=== PATIENT | male | born 1970 | race Caucasian/White ===

== ENCOUNTER 2017-10-05 17:00 | Inpatient (IN) | payer BC, OTHER ==
[~2017-10-05] VITALS: Ht 170.2 cm; Wt 70.9 kg
[2017-10-05] MEDS ORDERED: SODIUM CHLORIDE 0.9% 1000ML 1,000 ML IV STA (17:56)
[2017-10-05] MEDS ORDERED: OPTIRAY 320 IV PRN (18:00)
[2017-10-05 18:18] LABS: BASO % 0.4 %; BASO ABS # 0.07 K/uL (0-0.2); HEMATOCRIT 38.3 % (42-52); HEMOGLOBIN 13.3 g/dL (14.0-18.0); IG# 0.05 K/uL (0.00-0.02); LYMPH % 6.1 %; LYMPH ABS # 1.02 K/uL (1.2-3.4); MEAN CELL VOLUME 88.9 fL (80-100); MEAN CORPUSCULAR HEMOGLOBIN 30.9 pg (25-34); MEAN CORPUSCULAR HGB CONC 34.7 g/dl (32-36); MEAN PLATELET VOLUME 10.9 fL (7.4-10.4); MONO % 5.6 %; MONO ABS # 0.93 K/uL (0.11-0.59); NEUT % 87.6 %; NEUT ABS # 14.58 K/uL (1.4-6.5); PLATELET COUNT 305 K/uL (130-400); RED CELL DISTRIBUTION WIDTH CV 12.5 % (11.5-14.5); RED CELL DISTRIBUTION WIDTH SD 40.5 fL (36.4-46.3); WHITE BLOOD COUNT 16.65 K/uL (4.8-10.8)
[2017-10-05 18:38] LABS: ALBUMIN 3.9 gm/dl (3.4-5.0); CREATININE 1.09 mg/dl (0.60-1.40); POTASSIUM 4.2 mmol/L (3.5-5.1)
[2017-10-05 18:41] LABS: TOTAL PROTEIN 7.8 gm/dl (6.4-8.2)
--- NOTE | 2017-10-05 19:26 | DIAGNOSTIC IMAGING REPORT ---
ABDOMEN AND PELVIS CT WITH IV CONTRAST CT DOSE: 339.49 mGy.cm HISTORY: Acute left lower quadrant abdominal pain LLQ PAIN, SOFT STOOLS TECHNIQUE: Multiaxial CT images of the abdomen and pelvis were performed following the use of intravenous contrast. A dose lowering technique was utilized adhering to the principles of ALARA. COMPARISON STUDY: None. FINDINGS: Minimal dependent subsegmental bibasilar atelectasis. There is no pneumatosis or pneumoperitoneum identified. The imaged inferior cardiac chambers are unremarkable. Liver, gallbladder, spleen, pancreas and adrenal glands are within normal limits. Right kidney and ureter are within normal limits. There are several nonobstructing calculi throughout the left kidney measuring up to 5 mm within the interpolar left kidney. There is moderate left-sided hydroureteronephrosis with moderate perinephric and periureteral inflammatory stranding secondary to a 10 x 7 x 6 mm calculus of the left ureterovesicular junction. Slightly delayed nephrogram on the left secondary to obstructive uropathy. There is a large exophytic heterogeneously enhancing mass of the superior and interpolar left kidney measuring up to 4.7 x 4.9 x 6.2 cm with areas of central low attenuation suggesting central necrosis. The left renal vein appears patent. No invasion into adjacent structures identified. Urinary bladder is partially decompressed with mild wall thickening. Aorta is normal in course and caliber. No bulky adenopathy identified. No bowel obstruction or focal bowel wall thickening. Visualized appendix appears normal. Soft tissues are unremarkable. Peripherally sclerotic 1.3 cm lesion of the posterior right iliac bone is nonspecific, however likely benign. Mild degenerative changes about the bilateral hips. Grade 1 anterolisthesis L5 on S1 with remote bilateral pars defects. IMPRESSION: 1. Large heterogeneously enhancing partially exophytic mass of the superior and interpolar left kidney measures up to 6.2 cm with areas of central low attenuation suggesting central necrosis, very suspicious for renal cell carcinoma . 2. Moderate left-sided hydroureteronephrosis secondary to a 10 mm calculus of the left ureterovesicular junction. Delayed left-sided nephrogram secondary to obstructive uropathy. Mild associated urothelial enhancement of the left renal collecting system and left ureter may be reactive or reflect associated infectious etiology. 3. No evidence of pathologic adenopathy or metastatic disease. 4. Grade 1 anterolisthesis L5 on S1 with remote bilateral pars defects. Electronically signed by: Tanner Grady M.D. 10/05/2017 7:25 PM Dictated Date/Time: 10/05/2017 7:13 PM
[2017-10-05] MEDS ORDERED: CEFTRIAXONE SOD INJ 1 GM ADDVIAL IV STA (19:32)
--- NOTE | 2017-10-05 21:26 | EMERGENCY ROOM VISIT NOTE ---
History First contact with patient: 17:35 Chief Complaint: ABDOMINAL PAIN Stated Complaint: LOWER LEFT CRAMPING/LL BACK PAIN INCREASING Nursing Triage Summary: Patient complains of LLQ abdominal pain. States he has had normal bowel movements today. Vomited once because he thought it would make him feel better. History of Present Illness Patient is an otherwise healthy 47-year-old white male who presents emergency department for evaluation of left lower quadrant abdominal pain. He states the pain began earlier today, and steadily worsened throughout the day. He notes the pain is located in the left lower quadrant and radiates through to his left low back slightly. He states the pain is worse when he is seated and better when he lays flat or when he is upright and walking. He admits to nausea and anorexia. He essentially drank only water today. He did vomit once, which did not help with his pain. He notes soft bowel movements today and increased frequency of bowel movements, but no diarrhea and no melena or hematochezia. He denies any urinary symptoms. No fever or chills. He rates his pain is 7/10 presently. He denies any prior history of kidney stones, diverticulitis or diverticulosis. He did not try taking any medications for his symptoms. Review of Systems Review of systems as per HPI. All other systems reviewed were negative. 10 systems reviewed. Past Medical/Surgical History Medical Problems: (1) Nephrolithiasis (2) No Known Active Medical Problems Electronic medical records are reviewed and summarized as above/below. See Problem List. Social History Smoking Status: Never Smoker Marital Status: Housing Status: lives with family Occupation Status: employed Current/Historical Medications No Active Prescriptions or Reported Meds Physical Exam Vital Signs Date Time Temp Pulse Resp B/P (MAP) Pulse Ox O2 Delivery O2 Flow Rate FiO2 10/05/17 21:52 74 18 125/84 97 Room Air 10/05/17 19:17 83 18 113/66 98 Room Air 10/05/17 17:08 36.3 67 20 116/78 99 Room Air Physical Exam CONSTITUTIONAL: Patient is an uncomfortable appearing 47-year-old white male who is awake and alert and lying semiupright on the gurney holding his left lower abdomen with his hand. EYES: Pupils equal, round, reactive to light and accommodation. EOMs intact without nystagmus. Sclera are anicteric. ENT: Tympanic membranes intact, with normal landmarks. External canals are clear. Oral and nasopharynx are clear. Mucous membranes are moist, no lesions , tongue and gums appear normal. NECK: Supple without lymphadenopathy. No thyromegaly. No meningeal signs. Full active range of motion without discomfort. CARDIOVASCULAR: Regular rate and rhythm, with normal S1 and S2, no murmur or gallop or rub is heard. No carotid bruits auscultated. No JVD. Peripheral pulses easily palpable. RESPIRATORY: Breath sounds equal and clear to auscultation without wheezes, rales, or rhonchi heard. Full and equal chest expansion without accessory muscle use or retractions. ABDOMEN: Bowel sounds are present. Abdomen is soft, scaphoid, nondistended and nontender to percussion throughout. He has tenderness in the suprapubic and left lower quadrant, extending into the left midabdomen with deep palpation, no guarding, rebound or rigidity. No CVA tenderness. INTEGUMENTARY: No lesions or rash, normal skin turgor. LYMPH: No lymphadenopathy. Medical Decision & Procedures ER Provider Diagnostic Interpretation: ABDOMEN AND PELVIS CT WITH IV CONTRAST CT DOSE: 339.49 mGy.cm HISTORY: Acute left lower quadrant abdominal pain LLQ PAIN, SOFT STOOLS TECHNIQUE: Multiaxial CT images of the abdomen and pelvis were performed following the use of intravenous contrast. A dose lowering technique was utilized adhering to the principles of ALARA. COMPARISON STUDY: None. FINDINGS: Minimal dependent subsegmental bibasilar atelectasis. There is no pneumatosis or pneumoperitoneum identified. The imaged inferior cardiac chambers are unremarkable. Liver, gallbladder, spleen, pancreas and adrenal glands are within normal limits. Right kidney and ureter are within normal limits. There are several nonobstructing calculi throughout the left kidney measuring up to 5 mm within the interpolar left kidney. There is moderate left-sided hydroureteronephrosis with moderate perinephric and periureteral inflammatory stranding secondary to a 10 x 7 x 6 mm calculus of the left ureterovesicular junction. Slightly delayed nephrogram on the left secondary to obstructive uropathy. There is a large exophytic heterogeneously enhancing mass of the superior and interpolar left kidney measuring up to 4.7 x 4.9 x 6.2 cm with areas of central low attenuation suggesting central necrosis. The left renal vein appears patent. No invasion into adjacent structures identified. Urinary bladder is partially decompressed with mild wall thickening. Aorta is normal in course and caliber. No bulky adenopathy identified. No bowel obstruction or focal bowel wall thickening. Visualized appendix appears normal. Soft tissues are unremarkable. Peripherally sclerotic 1.3 cm lesion of the posterior right iliac bone is nonspecific, however likely benign. Mild degenerative changes about the bilateral hips. Grade 1 anterolisthesis L5 on S1 with remote bilateral pars defects. IMPRESSION: 1. Large heterogeneously enhancing partially exophytic mass of the superior and interpolar left kidney measures up to 6.2 cm with areas of central low attenuation suggesting central necrosis, very suspicious for renal cell carcinoma . 2. Moderate left-sided hydroureteronephrosis secondary to a 10 mm calculus of the left ureterovesicular junction. Delayed left-sided nephrogram secondary to obstructive uropathy. Mild associated urothelial enhancement of the left renal collecting system and left ureter may be reactive or reflect associated infectious etiology. 3. No evidence of pathologic adenopathy or metastatic disease. 4. Grade 1 anterolisthesis L5 on S1 with remote bilateral pars defects. Laboratory Results 10/05/17 18:00 Red Blood Count 4.31, Mean Corpuscular Volume 88.9, Mean Corpuscular Hemoglobin 30.9, Mean Corpuscular Hemoglobin Concent 34.7, Mean Platelet Volume 10.9, Neutrophils (%) (Auto) 87.6, Lymphocytes (%) (Auto) 6.1, Monocytes (%) (Auto) 5.6, Eosinophils (%) (Auto) 0.0, Basophils (%) (Auto) 0.4, Neutrophils # (Auto) 14.58, Lymphocytes # (Auto) 1.02, Monocytes # (Auto) 0.93, Eosinophils # (Auto) 0.00, Basophils # (Auto) 0.07 10/05/17 18:00 Test 10/05/17 18:00 10/05/17 18:50 White Blood Count 16.65 K/uL (4.8-10.8) Red Blood Count 4.31 M/uL (4.7-6.1) Hemoglobin 13.3 g/dL (14.0-18.0) Hematocrit 38.3 % (42-52) Mean Corpuscular Volume 88.9 fL (80-100) Mean Corpuscular Hemoglobin 30.9 pg (25-34) Mean Corpuscular Hemoglobin Concent 34.7 g/dl (32-36) Platelet Count 305 K/uL (130-400) Mean Platelet Volume 10.9 fL (7.4-10.4) Neutrophils (%) (Auto) 87.6 % Lymphocytes (%) (Auto) 6.1 % Monocytes (%) (Auto) 5.6 % Eosinophils (%) (Auto) 0.0 % Basophils (%) (Auto) 0.4 % Neutrophils # (Auto) 14.58 K/uL (1.4-6.5) Lymphocytes # (Auto) 1.02 K/uL (1.2-3.4) Monocytes # (Auto) 0.93 K/uL (0.11-0.59) Eosinophils # (Auto) 0.00 K/uL (0-0.5) Basophils # (Auto) 0.07 K/uL (0-0.2) RDW Standard Deviation 40.5 fL (36.4-46.3) RDW Coefficient of Variation 12.5 % (11.5-14.5) Immature Granulocyte % (Auto) 0.3 % Immature Granulocyte # (Auto) 0.05 K/uL (0.00-0.02) Anion Gap 7.0 mmol/L (3-11) Est Creatinine Clear Calc Drug Dose 79.2 ml/min Estimated GFR () 93.8 Estimated GFR (Non- 81.0 BUN/Creatinine Ratio 13.5 (10-20) Calcium Level 9.0 mg/dl (8.5-10.1) Total Bilirubin 0.7 mg/dl (0.2-1) Aspartate Amino Transf (AST/SGOT) 27 U/L (15-37) Alanine Aminotransferase (ALT/SGPT) 25 U/L (12-78) Alkaline Phosphatase 75 U/L (45-117) Total Protein 7.8 gm/dl (6.4-8.2) Albumin 3.9 gm/dl (3.4-5.0) Globulin 3.9 gm/dl (2.5-4.0) Albumin/Globulin Ratio 1.0 (0.9-2) Urine Color YELLOW Urine Appearance CLEAR (CLEAR) Urine pH 7.5 (4.5-7.5) Urine Specific [place] 1.018 (1.000-1.030) Urine Protein NEG (NEG) Urine Glucose (UA) NEG (NEG) Urine Ketones 1+ (NEG) Urine Occult Blood TRACE (NEG) Urine Nitrite NEG (NEG) Urine Bilirubin NEG (NEG) Urine Urobilinogen NEG (NEG) Urine Leukocyte Esterase TRACE (NEG) Urine WBC (Auto) 1-5 /hpf (0-5) Urine RBC (Auto) 10-30 /hpf (0-4) Urine Hyaline Casts (Auto) 10-30 /lpf (0-5) Urine Epithelial Cells (Auto) 20-30 /lpf (0-5) Urine Bacteria (Auto) NEG (NEG) Medications Administered Medications (Trade) Dose Ordered Sig/Kostas Route Start Time Stop Time Status Last Admin Dose Admin Sodium Chloride 1,000 ml @ 999 mls/hr Q1H1M STAT IV 10/05/17 17:56 10/05/17 18:56 DC 10/05/17 17:56 999 MLS/HR Ceftriaxone Sodium (Rocephin Inj) 1 gm NOW STAT IV 10/05/17 19:32 10/05/17 19:34 DC 10/05/17 19:32 1 GM ED Course The patient was seen and evaluated as above. His old records were reviewed. IV lock was initiated and laboratory studies were collected. He was made NPO, and hydrated with normal saline solution. He was offered but declined any medication for pain or nausea. CBC with differential, CMP and urinalysis were collected. Given his left lower quadrant abdominal pain, CT scan of the abdomen and pelvis with IV contrast was ordered. Laboratory studies noted a white count of 16,600, with left shift and bandemia. H&H is 13.3 and 38.3. Platelet count 305,000. Chemistries did not note any electrolyte abnormalities. BUN and creatinine 15 and 1.09. LFTs are unremarkable. Urinalysis noted 1+ ketones, trace occult blood, trace leuk esterase and 10-30 WBCs and RBCs. The patient's CT scan noted a 10 mm calculus at the left UVJ with moderate left- sided hydroureteronephrosis, delayed left-sided nephrogram secondary to obstructive uropathy and mild associated urothelial enhancement of the left renal collecting system and ureter, reactive or infectious in nature. There was also a large heterogeneously enhancing left renal mass measuring up to 6 cm that is suspicious for renal cell carcinoma. At this point, urine culture and blood cultures 2 were obtained and the patient was given 1 g of ceftriaxone IV empirically. Patient history, presentation and ED workup were reviewed with attending physician, and discussed with Dr. Mancini of urology. He recommended admission for IV antibiotics, and likely surgical intervention for stone removal tomorrow. He stated that the patient did not need any type of urgent surgical intervention unless he began to demonstrate signs of sepsis including but not limited to fever or tachycardia. All laboratory and diagnostic imaging studies were reviewed with the patient and his at length and her questions were answered. He was ordered a dinner trying in anticipation of his n.p.o. status after midnight. [facility] and [facility] Differential diagnoses entertained included UTI, pyelonephritis, renal colic, diverticulitis, bowel obstruction, perforation, abscess, mass or malignancy, infectious versus inflammatory colitis, shingles, among others. Medical Decision See emergency department course. Medication Reconcilliation Current Medication List: was personally reviewed by ak Blood Pressure Screening Patient's blood pressure: Normal blood pressure Blood pressure disposition: Did not require urgent referral Impression Primary Impression: Left ureteral stone Additional Impressions: UTI (urinary tract infection) Left renal mass Departure Information Dispostion Being Evaluated By Hospitalist Prescriptions No Active Prescriptions or Reported Meds Referrals Jakub Martin M.D. (PCP) Patient Instructions My [facility] Problem Qualifiers
[2017-10-05] MEDS ORDERED: ACETAMINOPHEN 325 MG TAB PO PRN (22:00)
[2017-10-05] MEDS ORDERED: ONDANSETRON INJ 2 MG/ML 2 ML VIAL IV PRN (22:00)
[2017-10-05] MEDS ORDERED: MAGNESIUM HYDROXIDE SUSP 30 ML UDC PO PRN (22:00)
--- NOTE | 2017-10-05 22:17 | History and Physical ---
History & Physical Date & Time of Service: Oct 05, 2017 at 22:13 Chief Complaint: Lower Left Cramping/Ll Back Pain Increasing Primary Care Physician: Jakub Martin M.D. History of Present Illness Source: patient 47-year-old male with no significant past medical history presented to the ER with complaints of left lower quadrant abdominal pain that started earlier today. The pain is in the left lower quadrant and radiating to his left lower back and is worse on sitting. He stated that he had some nausea and had induced vomiting 1. He also noted increased frequency of bowel movements but denies any bright red bleeding per rectum or melena or diarrhea. Denies any urinary complaints such as frequency, dysuria, hematuria. Denies any history of kidney stones. Denies any fevers or chills. Currently he reports no pain. Past Medical/Surgical History No significant past medical history Family History Breast cancer in mother Social History Smoking Status: Never Smoker Marital Status: Occupational Status: employed Allergies Coded Allergies: Amoxicillin (Verified Allergy, Mild, Hives, 10/05/17) Safflower (Unverified Allergy, Unknown, RASH, 10/05/17) Uncoded Allergies: CHOCOLATE (Allergy, Unknown, 09/08/02) Home Medications No Active Prescriptions or Reported Meds Review of Systems Constitutional: No fever, No chills Eyes: No worsening of vision ENT: No hearing loss Respiratory: No cough, No sputum, No wheezing, No shortness of breath Cardiovascular: No chest pain Abdomen: + pain, + nausea (LLQ), No diarrhea, No constipation Musculoskeletal: No joint pain Genitourinary - Male: No hematuria, No dysuria, No urinary frequency, No urinary urgency Neurologic: No memory loss Psychiatric: No depression symptoms Endocrine: No fatigue Hematologic / Lymphatic: No abnormal bleeding/bruising Physical Exam Vital Signs Date Time Temp Pulse Resp B/P (MAP) Pulse Ox O2 Delivery O2 Flow Rate FiO2 10/05/17 21:52 74 18 125/84 97 Room Air 10/05/17 19:17 83 18 113/66 98 Room Air 10/05/17 17:08 36.3 67 20 116/78 99 Room Air General Appearance: WD/WN, no apparent distress Head: normocephalic Eyes: normal inspection ENT: hearing grossly normal Neck: supple Respiratory/Chest: chest non-tender, lungs clear, normal breath sounds, no respiratory distress, no accessory muscle use Cardiovascular: regular rate, rhythm Abdomen/GI: normal bowel sounds, non tender, soft Extremities/Musculoskelatal: no pedal edema Neurologic/Psych: alert, normal mood/affect, oriented x 3 Diagnostics Laboratory Results Results Past 24 Hours Test 10/05/17 18:00 10/05/17 18:50 Range/Units White Blood Count 16.65 4.8-10.8 K/uL Red Blood Count 4.31 4.7-6.1 M/uL Hemoglobin 13.3 14.0-18.0 g/dL Hematocrit 38.3 42-52 % Mean Corpuscular Volume 88.9 80-100 fL Mean Corpuscular Hemoglobin 30.9 25-34 pg Mean Corpuscular Hemoglobin Concent 34.7 32-36 g/dl Platelet Count 305 130-400 K/uL Mean Platelet Volume 10.9 7.4-10.4 fL Neutrophils (%) (Auto) 87.6 % Lymphocytes (%) (Auto) 6.1 % Monocytes (%) (Auto) 5.6 % Eosinophils (%) (Auto) 0.0 % Basophils (%) (Auto) 0.4 % Neutrophils # (Auto) 14.58 1.4-6.5 K/uL Lymphocytes # (Auto) 1.02 1.2-3.4 K/uL Monocytes # (Auto) 0.93 0.11-0.59 K/uL Eosinophils # (Auto) 0.00 0-0.5 K/uL Basophils # (Auto) 0.07 0-0.2 K/uL RDW Standard Deviation 40.5 36.4-46.3 fL RDW Coefficient of Variation 12.5 11.5-14.5 % Immature Granulocyte % (Auto) 0.3 % Immature Granulocyte # (Auto) 0.05 0.00-0.02 K/uL Sodium Level 137 136-145 mmol/L Potassium Level 4.2 3.5-5.1 mmol/L Chloride Level 105 98-107 mmol/L Carbon Dioxide Level 25 21-32 mmol/L Anion Gap 7.0 3-11 mmol/L Blood Urea Nitrogen 15 7-18 mg/dl Creatinine 1.09 0.60-1.40 mg/dl Est Creatinine Clear Calc Drug Dose 79.2 ml/min Estimated GFR () 93.8 Estimated GFR (Non- 81.0 BUN/Creatinine Ratio 13.5 10-20 Random Glucose 130 70-99 mg/dl Calcium Level 9.0 8.5-10.1 mg/dl Total Bilirubin 0.7 0.2-1 mg/dl Aspartate Amino Transf (AST/SGOT) 27 15-37 U/L Alanine Aminotransferase (ALT/SGPT) 25 12-78 U/L Alkaline Phosphatase 75 45-117 U/L Total Protein 7.8 6.4-8.2 gm/dl Albumin 3.9 3.4-5.0 gm/dl Globulin 3.9 2.5-4.0 gm/dl Albumin/Globulin Ratio 1.0 0.9-2 Urine Color YELLOW Urine Appearance CLEAR CLEAR Urine pH 7.5 4.5-7.5 Urine Specific [place] 1.018 1.000-1.030 Urine Protein NEG NEG Urine Glucose (UA) NEG NEG Urine Ketones 1+ NEG Urine Occult Blood TRACE NEG Urine Nitrite NEG NEG Urine Bilirubin NEG NEG Urine Urobilinogen NEG NEG Urine Leukocyte Esterase TRACE NEG Urine WBC (Auto) 1-5 0-5 /hpf Urine RBC (Auto) 10-30 0-4 /hpf Urine Hyaline Casts (Auto) 10-30 0-5 /lpf Urine Epithelial Cells (Auto) 20-30 0-5 /lpf Urine Bacteria (Auto) NEG NEG Microbiology Results 10/05/17 Blood Culture, Received Pending 10/05/17 Blood Culture, Received Pending 10/05/17 Urine Culture, Received Pending Diagnostic Radiology [~ rep ct add3]] ABDOMEN AND PELVIS CT WITH IV CONTRAST CT DOSE: 339.49 mGy.cm HISTORY: Acute left lower quadrant abdominal pain LLQ PAIN, SOFT STOOLS TECHNIQUE: Multiaxial CT images of the abdomen and pelvis were performed following the use of intravenous contrast. A dose lowering technique was utilized adhering to the principles of ALARA. COMPARISON STUDY: None. FINDINGS: Minimal dependent subsegmental bibasilar atelectasis. There is no pneumatosis or pneumoperitoneum identified. The imaged inferior cardiac chambers are unremarkable. Liver, gallbladder, spleen, pancreas and adrenal glands are within normal limits. Right kidney and ureter are within normal limits. There are several nonobstructing calculi throughout the left kidney measuring up to 5 mm within the interpolar left kidney. There is moderate left-sided hydroureteronephrosis with moderate perinephric and periureteral inflammatory stranding secondary to a 10 x 7 x 6 mm calculus of the left ureterovesicular junction. Slightly delayed nephrogram on the left secondary to obstructive uropathy. There is a large exophytic heterogeneously enhancing mass of the superior and interpolar left kidney measuring up to 4.7 x 4.9 x 6.2 cm with areas of central low attenuation suggesting central necrosis. The left renal vein appears patent. No invasion into adjacent structures identified. Urinary bladder is partially decompressed with mild wall thickening. Aorta is normal in course and caliber. No bulky adenopathy identified. No bowel obstruction or focal bowel wall thickening. Visualized appendix appears normal. Soft tissues are unremarkable. Peripherally sclerotic 1.3 cm lesion of the posterior right iliac bone is nonspecific, however likely benign. Mild degenerative changes about the bilateral hips. Grade 1 anterolisthesis L5 on S1 with remote bilateral pars defects. IMPRESSION: 1. Large heterogeneously enhancing partially exophytic mass of the superior and interpolar left kidney measures up to 6.2 cm with areas of central low attenuation suggesting central necrosis, very suspicious for renal cell carcinoma . 2. Moderate left-sided hydroureteronephrosis secondary to a 10 mm calculus of the left ureterovesicular junction. Delayed left-sided nephrogram secondary to obstructive uropathy. Mild associated urothelial enhancement of the left renal collecting system and left ureter may be reactive or reflect associated infectious etiology. 3. No evidence of pathologic adenopathy or metastatic disease. 4. Grade 1 anterolisthesis L5 on S1 with remote bilateral pars defects. Electronically signed by: Tanner Grady M.D. 10/05/2017 7:25 PM Dictated Date/Time: 10/05/2017 7:13 PM Impression Assessment and Plan 47-year-old male with no significant past medical history presented to the ER with complaints of left lower quadrant abdominal pain that started earlier today. The pain is in the left lower quadrant and radiating to his left lower back and is worse on sitting. Associated with nausea and one episode of vomiting. Left kidney nephrolithiasis: -Abdominal CT pelvis revealed Moderate left-sided hydroureteronephrosis secondary to a 10 mm calculus of the left ureterovesicular junction. Mild associated urothelial enhancement of the left renal collecting system and left ureter may be reactive or reflect associated infectious etiology. -Currently pain-free and declines pain medication -Flomax 0.4 mg daily -Urology consult -UA with trace leukoesterase and trace blood, urine culture pending -IV Rocephin daily for possible urinary tract infection -N.p.o. after midnight in anticipation of procedure tomorrow Left renal mass suspicious of renal cell carcinoma: -Abdominal CT revealed Large heterogeneously enhancing partially exophytic mass of the superior and interpolar left kidney measures up to 6.2 cm with areas of central low attenuation suggesting central necrosis, very suspicious for renal cell carcinoma . -Oncology consult DVT prophylaxis: SCDs No chemical anticoagulation in anticipation of procedure tomorrow Full code Admitted to [facility] Resident Physician Supervision Note: I was present with Dr. Hall during the history and exam. I discussed the case with the resident and agree with the findings and plan as documented in the note. Any exceptions or clarifications are listed here: 47 y/o M - denies significant medical history. Presents with LLQ abdominal pain. A CT abdomen pelvis reveals a 10mm calculus at the L ureterovesical junction. There is also a 6cm exophytic renal mass which is suspicious for renal CA - no evidence of met disease on current imaging OE AAO x 3 S1,2 R CTAB NT, ND No CCE P: IVF, analgesia provided - urology to evaluate AM Reg the renal mass - we willl defer to urology initially as he will likely need a biopsy - he should f/u with oncology on DC Documented By: Mario Alberto Adames Resuscitation Status Full code VTE Prophylaxis Will order VTE Prophylaxis: Yes Resident Tracking Resident Involvement: Resident Care Provided Care Provided: Adult Hospital Medicine
[2017-10-05 22:26] VITALS: BP 125/84; PULSE 74; TEMP 36.3; BMI 24.5
[2017-10-05] MEDS ORDERED: TAMSULOSIN HCL 0.4 MG CAP PO STA (22:52)
[2017-10-05 23:05] VITALS: BP 122/79; PULSE 72; TEMP 36.9; O2SAT 100
[2017-10-05 23:40] VITALS: O2SAT 100; Ht 170.2 cm; Wt 70.9 kg
[2017-10-05] MEDS: SODIUM CHLORIDE 0.9% 1000ML 1,000 ML IV SCH (23:53)
[2017-10-06] MEDS: SODIUM CHLORIDE 0.9% 1000ML 1,000 ML IV SCH ×2 (05:48→12:25)
[2017-10-06 07:07] VITALS: BP 105/70; PULSE 62; TEMP 37; O2SAT 97
[2017-10-06 07:12] LABS: ALBUMIN 3.1 gm/dl (3.4-5.0); CALCIUM 8.1 mg/dl (8.5-10.1); CREATININE 0.8 mg/dl (0.60-1.40); POTASSIUM 3.7 mmol/L (3.5-5.1)
[2017-10-06 07:20] LABS: TOTAL PROTEIN 6.1 gm/dl (6.4-8.2)
--- NOTE | 2017-10-06 08:15 | Family Medicine Progress Note ---
Progress Note Date of Service Oct 06, 2017. Subjective Pt evaluation today including: conversation w/ patient, physical exam, chart review, lab review, review of studies, conversation w/ regulatory consultant, review of inpatient medication list Patient appears well this morning. He states he is no longer having the severe "intestinal pain" he was having earlier and now is only experiencing a mild throbbing in LLQ, with no radiation into the back. He denies current nausea or ongoing vomiting. He states he is voiding without issue, and has not noted any blood in his urine. He denies changes in bowel habits. He otherwise denies fevers/chills, headaches, CP, palpitations, dyspnea, lower extremity swelling or rashes. ROS is unremarkable except as noted above. Objective Vital Signs Date Time Temp Pulse Resp B/P (MAP) Pulse Ox O2 Delivery O2 Flow Rate FiO2 10/05/17 23:40 Room Air 10/05/17 23:40 100 Room Air 10/05/17 23:05 36.9 72 16 122/79 (93) 100 Room Air 10/05/17 22:26 36.3 74 18 125/84 10/05/17 21:52 74 18 125/84 97 Room Air 10/05/17 19:17 83 18 113/66 98 Room Air 10/05/17 17:08 36.3 67 20 116/78 99 Room Air Physical Exam General Appearance: WD/WN, no apparent distress Eyes: normal inspection ENT: hearing grossly normal Neck: supple Respiratory/Chest: lungs clear, normal breath sounds, no respiratory distress, no accessory muscle use Cardiovascular: regular rate, rhythm, no murmur Abdomen: normal bowel sounds, non tender ( to palpation), soft, + pertinent finding (No CVA tenderness) Extremities: no pedal edema, no calf tenderness Neurologic/Psychiatric: alert, normal mood/affect, oriented x 3 Skin: normal color, warm/dry, no rash Laboratory Results Results Past 24 Hours Test 10/05/17 18:00 10/05/17 18:50 10/06/17 06:23 10/06/17 06:26 Range/Units White Blood Count 16.65 11.05 4.8-10.8 K/uL Red Blood Count 4.31 4.02 4.7-6.1 M/uL Hemoglobin 13.3 11.7 14.0-18.0 g/dL Hematocrit 38.3 36.2 42-52 % Mean Corpuscular Volume 88.9 90.0 80-100 fL Mean Corpuscular Hemoglobin 30.9 29.1 25-34 pg Mean Corpuscular Hemoglobin Concent 34.7 32.3 32-36 g/dl Platelet Count 305 274 130-400 K/uL Mean Platelet Volume 10.9 11.1 7.4-10.4 fL Neutrophils (%) (Auto) 87.6 61.0 % Lymphocytes (%) (Auto) 6.1 29.1 % Monocytes (%) (Auto) 5.6 8.3 % Eosinophils (%) (Auto) 0.0 0.9 % Basophils (%) (Auto) 0.4 0.5 % Neutrophils # (Auto) 14.58 6.73 1.4-6.5 K/uL Lymphocytes # (Auto) 1.02 3.22 1.2-3.4 K/uL Monocytes # (Auto) 0.93 0.92 0.11-0.59 K/uL Eosinophils # (Auto) 0.00 0.10 0-0.5 K/uL Basophils # (Auto) 0.07 0.06 0-0.2 K/uL RDW Standard Deviation 40.5 41.9 36.4-46.3 fL RDW Coefficient of Variation 12.5 12.7 11.5-14.5 % Immature Granulocyte % (Auto) 0.3 0.2 % Immature Granulocyte # (Auto) 0.05 0.02 0.00-0.02 K/uL Sodium Level 137 144 136-145 mmol/L Potassium Level 4.2 3.7 3.5-5.1 mmol/L Chloride Level 105 110 98-107 mmol/L Carbon Dioxide Level 25 27 21-32 mmol/L Anion Gap 7.0 6.0 3-11 mmol/L Blood Urea Nitrogen 15 15 7-18 mg/dl Creatinine 1.09 0.80 0.60-1.40 mg/dl Est Creatinine Clear Calc Drug Dose 79.2 107.9 ml/min Estimated GFR () 93.8 124.2 Estimated GFR (Non- 81.0 107.1 BUN/Creatinine Ratio 13.5 18.8 10-20 Random Glucose 130 84 70-99 mg/dl Calcium Level 9.0 8.1 8.5-10.1 mg/dl Total Bilirubin 0.7 0.7 0.2-1 mg/dl Aspartate Amino Transf (AST/SGOT) 27 20 15-37 U/L Alanine Aminotransferase (ALT/SGPT) 25 19 12-78 U/L Alkaline Phosphatase 75 60 45-117 U/L Total Protein 7.8 6.1 6.4-8.2 gm/dl Albumin 3.9 3.1 3.4-5.0 gm/dl Globulin 3.9 3.0 2.5-4.0 gm/dl Albumin/Globulin Ratio 1.0 1.0 0.9-2 Urine Color YELLOW Urine Appearance CLEAR CLEAR Urine pH 7.5 4.5-7.5 Urine Specific [place] 1.018 1.000-1.030 Urine Protein NEG NEG Urine Glucose (UA) NEG NEG Urine Ketones 1+ NEG Urine Occult Blood TRACE NEG Urine Nitrite NEG NEG Urine Bilirubin NEG NEG Urine Urobilinogen NEG NEG Urine Leukocyte Esterase TRACE NEG Urine WBC (Auto) 1-5 0-5 /hpf Urine RBC (Auto) 10-30 0-4 /hpf Urine Hyaline Casts (Auto) 10-30 0-5 /lpf Urine Epithelial Cells (Auto) 20-30 0-5 /lpf Urine Bacteria (Auto) NEG NEG Microbiology Results 10/05/17 Blood Culture, Received Pending 10/05/17 Blood Culture, Received Pending 10/05/17 Urine Culture, Received Pending Assessment and Plan 47 year old male with no significant past medical history presented to the ED with complaints of acute onset left lower quadrant abdominal pain with radiation to his left lower back, with nausea and vomiting. Admitted for 10mm calculus of the left ureterovesicular junction with hydroureteronephrosis as well as left renal exophytic mass. Left ureteric stone with possible associated infection Abdominal CT pelvis reports moderate left-sided hydroureteronephrosis secondary to a 10mm calculus of the left ureterovesicular junction. Mild associated urothelial enhancement of the left renal collecting system and left ureter may be reactive or reflect associated infectious etiology. - Urology consulted, patient NPO with IVF for possible procedure today. - UA shows trace leuks and blood, urine culture pending. Empiric treatment of UTI with IV Rocephin daily - day 2 - Initiated tamsulosin daily - Currently minimal pain/nausea - patient declines analgesics/anti-emetics Left renal mass, suspicious of renal cell carcinoma: - Abdominal CT reports large heterogeneously enhancing partially exophytic mass of the superior and interpolar left kidney measures up to 6.2cm with areas of central low attenuation suggesting central necrosis, very suspicious for renal cell carcinoma. No evidence of pathologic adenopathy or metastatic disease. - Oncologist, Dr. Soria states no role for oncology yet with mass of this side, patient will need nephrectomy. Patient with outpatient oncology follow up. - Urology consulted DVT prophylaxis: - SCDs - No chemical anticoagulation in anticipation of procedure FULL CODE Resident Tracking Resident Involvement: Resident Care Provided Care Provided: Adult [facility] Medicine Reviewed: Pt Seen/Exam by Me History pain almost resolved. Constitutional: denies: fever Respiratory: negative: short of breath Cardiovascular: denies chest pain Gastrointestinal/Abdominal: negative: abdominal pain General Appearance: no apparent distress Respiratory: lungs clear, no respiratory distress Cardiovascular: regular rate, rhythm Gastrointestinal: normal bowel sounds, non tender, soft Neurologic/Psychiatric: alert, oriented x 3 Skin Characteristics: warm/dry Assessment/Plan Resident Physician Supervision Note: I independently interviewed and examined the patient and verified the ramirez history and physical, reviewed labs and image studies, discussed the case with the resident Dr. Mayfield and agree with the findings and care plan.
[2017-10-06 09:01] LABS: BASO % 0.5 %; BASO ABS # 0.06 K/uL (0-0.2); EOS % 0.9 %; HEMATOCRIT 36.2 % (42-52); HEMOGLOBIN 11.7 g/dL (14.0-18.0); IG# 0.02 K/uL (0.00-0.02); LYMPH % 29.1 %; LYMPH ABS # 3.22 K/uL (1.2-3.4); MEAN CORPUSCULAR HEMOGLOBIN 29.1 pg (25-34); MEAN CORPUSCULAR HGB CONC 32.3 g/dl (32-36); MEAN PLATELET VOLUME 11.1 fL (7.4-10.4); MONO % 8.3 %; MONO ABS # 0.92 K/uL (0.11-0.59); NEUT ABS # 6.73 K/uL (1.4-6.5); PLATELET COUNT 274 K/uL (130-400); RED CELL DISTRIBUTION WIDTH CV 12.7 % (11.5-14.5); RED CELL DISTRIBUTION WIDTH SD 41.9 fL (36.4-46.3); WHITE BLOOD COUNT 11.05 K/uL (4.8-10.8)
[2017-10-06] MEDS ORDERED: CIPROFLOXACIN 400MG / 200ML D5W IV ONE (12:45)
[2017-10-06] MEDS ORDERED: CIPROFLOXACIN / D5W 400 MG IV SCH (13:30)
--- NOTE | 2017-10-06 14:17 | Urology Consultation ---
History General Date of Service: Oct 06, 2017. Primary Care Physician: Jakub Martin M.D. Pt seen a urologist before?: No History of Present Illness Very healthy 47-year-old male who presented to the emergency room yesterday after 24 hours of left lower quadrant pain He presumed this was related to GI issues, but upon arrival had a CT which revealed a left distal ureteral calculus (1.0 centimeter) On the same CT, he was noted to have a left, solid, enhancing renal mass approximately 6 cm -location abuts the hilum He denies any past history of kidney stones Number hematuria No flank pain or symptoms consistent with renal mass prior to the onset of the pain yesterday Family history is significant for breast cancer but no history of renal cell carcinoma, no history of kidney stones He is feeling notably better today, but has not passed the stone Laboratory Labs were reviewed and are within normal limits unless listed below. Labs are available in the chart and at [facility] Problem List Medical Problems: (1) Left renal mass Status: Acute (2) Left ureteral stone Status: Acute (3) UTI (urinary tract infection) Status: Acute Past History no pertinent history Past Surgical History: no surgical history Family History no stone hx Social History Hx Tobacco Use In Past Year?: No Smoking: non-smoker Marital status: Occupation status: employed History of MDRO No Allergies Coded Allergies: Amoxicillin (Verified Allergy, Mild, Hives, 10/05/17) Safflower (Unverified Allergy, Unknown, RASH, 10/05/17) Uncoded Allergies: CHOCOLATE (Allergy, Unknown, 09/08/02) Medications Home Medications: Home Meds and Scripts Medications Dose Route/Sig Max Daily Dose Days Date Category No Active Prescriptions or Reported Medications Rx Inpatient Medications: Current Inpatient Medications Medications (Trade) Dose Ordered Sig/Kostas Route Start Time Stop Time Status Last Admin Dose Admin Ioversol (Optiray 320) 100 ml UD PRN IV 10/05/17 18:00 10/09/17 17:59 Acetaminophen (Tylenol Tab) 650 mg Q4H PRN PO 10/05/17 22:00 11/04/17 21:59 Magnesium Hydroxide (Milk Of Magnesia Susp) 30 ml Q6H PRN PO 10/05/17 22:00 11/04/17 21:59 Ondansetron HCl (Zofran Inj) 4 mg Q6H PRN IV 10/05/17 22:00 11/04/17 21:59 Sodium Chloride 1,000 ml @ 150 mls/hr Q6H40M IV 10/05/17 22:15 11/04/17 22:14 10/06/17 12:25 150 MLS/HR Tamsulosin HCl (Flomax Cap) 0.4 mg HS PO 10/06/17 21:00 11/05/17 20:59 Ceftriaxone Sodium 1 gm/ Dextrose 50 ml @ 100 mls/hr Q24H IV 10/06/17 19:00 10/14/17 19:29 Ciprofloxacin/ Dextrose 200 ml @ 100 mls/hr PREOP IV 10/06/17 13:30 10/06/17 18:00 Review of Systems Review of Systems Constitutional: No see HPI, No fever, No chills, No frequent headaches, No weight loss, No problem reported Eyes: No see HPI, No blurred vision, No double vision, No eye pain, No loss of night vision, No problem reported Neurological: No see HPI, No dizzy, No passing out, No numbness/tingling, No seizures, No problem reported Endocrine: No see HPI, No excessive thirst, No too hot, No too cold, No tired/ sluggish, No problem reported Gastrointestinal: + abdominal pain Cardiovascular: No see HPI, No heart murmur, No chest pain, No angina, No irregular heartbeat, No palpitations, No swelling ankles/feet, No problem reported Respiratory: No see HPI, No shortness of breath, No wheezing, No coughing up blood, No chronic cough, No problem reported Skin: No see HPI, No rash, No boils, No dry skin, No problem reported Musculoskeletal: No see HPI, No joint pain, No neck pain, No back pain, No arthritis, No problem reported Ears / Nose / Throat: No see HPI, No hearing loss, No sinus, No hoarse voice, No sore throat, No problem reported Psychologic / Mental: No see HPI, No nervous, No trouble remembering, No difficulty sleeping, No problem reported Male : + kidney stones All Other Systems: Reviewed and Negative Physical Exam Vital Signs: Vital Signs Past 12 Hours Date Time Temp Pulse Resp B/P (MAP) Pulse Ox O2 Delivery O2 Flow Rate FiO2 10/06/17 07:55 Room Air 10/06/17 07:07 37.0 62 16 105/70 (82) 97 Room Air Physical Exam: General Appearance: no apparent distress Eyes: bilateral eyes normal inspection ENT: hearing grossly normal Neck: supple, no adenopathy, thyroid normal, no JVD Respiratory/Chest: no respiratory distress, no accessory muscle use Cardiovascular: no edema, no gallop Gastrointestinal: Abdomen: normal abdomen Bladder: normal bladder Renal: normal renal Extremities: normal range of motion, non-tender Neurologic/Psychiatric: alert, normal mood/affect, oriented x 3 Skin: normal color, warm/dry Lymphatic: no adenopathy Assessment & Plan Assessment & Plan Left renal mass; left kidney stone, left ureteral stone #1 left renal mass Lengthy discussion today about my suspicion that this is a renal cell carcinoma I have stressed that he does not need to have this treated acutely, but we will plan for treatment and discuss the details further at his follow-up #2 left ureteral stone He is relatively asymptomatic today, but this was likely source of the pain Given the size of the stone and the location is other pathology, I suggested we treat the stone today Plan for cystoscopy, left ureteroscopy, left laser lithotripsy plus or minus stent placement Assuming he tolerates this well, he likely can be discharged home later today
--- NOTE | 2017-10-06 14:31 | DIAGNOSTIC IMAGING REPORT ---
CHEST 2 VIEWS ROUTINE CLINICAL HISTORY: pre-op preoperative evaluation. Nephrocalcinosis. COMPARISON STUDY: No previous studies for comparison. FINDINGS: The bones soft tissues and hemidiaphragms are normal. The cardiomediastinal silhouette is normal. The lungs are clear. The pulmonary vasculature is normal. IMPRESSION: Negative chest. The above report was generated using voice recognition software. It may contain grammatical, syntax or spelling errors. Electronically signed by: Uziel Moser M.D. 10/06/2017 2:29 PM Dictated Date/Time: 10/06/2017 2:29 PM
--- NOTE | 2017-10-06 15:04 | DIAGNOSTIC IMAGING REPORT ---
KUB HISTORY: Preoperative exam in a patient with left-sided nephrolithiasis l ureteral stone COMPARISON: CT abdomen and pelvis 10/05/2017 FINDINGS: The bowel gas pattern is non-obstructive. There is no organomegaly. 10 mm calculus of the left ureterovesicular junction appears unchanged from comparison study. Multiple left-sided nephrolithiasis redemonstrated. The right renal shadow is partially secured by bowel gas. No pneumoperitoneum or pneumatosis. No fracture. IMPRESSION: 1. Unchanged positioning of the 10 mm left ureterovesicular junction calculus. 2. Multiple left-sided renal calculi appear unchanged. Electronically signed by: Tanner Grady M.D. 10/06/2017 3:03 PM Dictated Date/Time: 10/06/2017 2:56 PM
[2017-10-06] MEDS ORDERED: ONDANSETRON INJ 2 MG/ML 2 ML VIAL IV PRN (15:30)
[2017-10-06] MEDS ORDERED: FENTANYL CITRATE INJ 50 MCG/1 ML 2 ML VIAL IV PRN (15:30)
[2017-10-06] MEDS ORDERED: EpHEDrine SULFATE INJ 50 MG/ML AMP IV PRN (15:30)
[2017-10-06] MEDS ORDERED: ATROPINE SULFATE 0.1 MG/ML 5ML SYR IV PRN (15:30)
[2017-10-06] MEDS ORDERED: MIDAZOLAM HCL 1 MG/ML 2ML VIAL ONE (15:41)
[2017-10-06] MEDS ORDERED: LIDOCAINE HCL 2% 2 ML VIAL (20MG/ML) ONE (15:41)
[2017-10-06] MEDS ORDERED: FENTANYL CITRATE INJ 50 MCG/1 ML 2 ML VIAL ONE ×2 (15:41→16:54)
[2017-10-06] MEDS ORDERED: PROPOFOL IV EMULSION 10 MG/ML 20 ML VIAL IV ONE (15:41)
[2017-10-06] MEDS ORDERED: Cysto-Conray II 17.2% 250ML BOTTLE ONE (15:59)
[2017-10-06] MEDS ORDERED: DEXAMETHASONE SOD INJ 4 MG/ML VIAL ONE (16:24)
[2017-10-06] MEDS ORDERED: ONDANSETRON INJ 2 MG/ML 2 ML VIAL ONE (16:24)
--- NOTE | 2017-10-06 17:02 | [facility] Post Operative Brief Note ---
Immediate Operative Summary Operative Date Oct 06, 2017. Pre-Operative Diagnosis left ureteral stone Post-Operative Diagnosis left ureteral stone Procedure(s) Performed Cystoscopy, Left Ureteroscopy, Stone Extraction, Laser Lithotripsy, Stent Insertion ([id number]) Surgeon Dr. Cordoba Team Facilitator Surgeon(s) none Estimated Blood Loss 5CC Findings Consistent with Post-Op Diagnosis Specimens A. Left ureteral stones - for chemical analysis Drains None Anesthesia Type General Complication(s) none Disposition Accompanied Pt To Recover: yes Disposition: Recovery Room / PACU (stable)
--- NOTE | 2017-10-06 17:07 | [facility] Operative Report ---
Operative Report Operative Date Oct 06, 2017. Pre-Operative Diagnosis left ureteral stone Post-Operative Diagnosis left ureteral stone Procedure(s) Performed Cystoscopy, Left Ureteroscopy, Stone Extraction, Laser Lithotripsy, Stent Insertion ([id number]) Surgeon Dr. Cordoba Dental Assistant Surgeon(s) none Estimated Blood Loss 5CC Specimens A. Left ureteral stones - for chemical analysis Drains None Anesthesia Type General Complication(s) none Disposition yes Recovery Room / PACU (stable) Description of Procedure Patient was identified in the preoperative holding area, appropriate informed consents reviewed and completed he was transported to the operating suite. Upon arrival he received appropriate preoperative antibiotics in the form of ciprofloxacin. Adequate general anesthesia was achieved, and he was placed in dorsal lithotomy position where he was sterilely prepped and draped in standard fashion. I began the case by passing a 22 Tamazight cystoscope with 30 lens. Inspection revealed healthy-appearing urethra moderately enlarged prostate without significant obstruction, and the bladder without tumors. Of note, his right ureteral orifice was healthy-appearing and in orthotopic position. His left ureteral orifice was very mounded and edematous with mild erythema around it, all consistent with a distal impacted ureteral stone. The UO itself was not readily visible and the stone was not seen protruding from the UO. Following my inspection I began to probe the suspected areas of the UO with a sensor wire and a 5 Tamazight open-ended catheter. I was able to advance a wire beyond the radial opaque distal ureteral stone. Leaving this wire in place, then reentered the bladder with a semirigid ureteroscope and gently guided into the distal ureter. Although visualization was somewhat challenging, I was able to appreciate a distal stone which was significantly impacted circumferentially around the ureter. To better facilitate visualization, using laser to make a slight incision on the anterior surface of the ureteral orifice. This allowed me to better visualize the stone I was able to then fragmented entirely and irrigated the pieces out of the distal ureter. There is irritated ureteral mucosa circumferentially at the site of impaction, but no retained fragments within the ureter. I was able to advance the scope maximally, and in the proximal ureter he was noted to have hydronephrosis but no mucosal abnormalities. I then withdrew the scope and reentered with a cystoscope and placed a 6 Tamazight by 26 cm double-J ureteral stent. There is good curl in the kidney as well as the bladder. Numerous stone fragments were seen throughout the bladder and these were irrigated out of the bladder and passed off the table as a specimen labeled stone for chemical analysis. After decompressing the bladder, the case was concluded and the patient was extubated and taken to the PACU in stable condition. There were no complications. I attest to the content of the Intraoperative Record and any orders documented therein. Any exceptions are noted below.
--- NOTE | 2017-10-06 17:32 | Anesthesiology Progress Note ---
Anesthesia Post Op Note Date & Time Oct 06, 2017 at 17:32 Vital Signs Pain Intensity: 0 Vital Signs Past 12 Hours Date Time Temp Pulse Resp B/P (MAP) Pulse Ox O2 Delivery O2 Flow Rate FiO2 10/06/17 17:25 76 12 97/57 100 Oxymask 10 10/06/17 17:15 65 12 96/56 100 Oxymask 10 10/06/17 17:09 36.6 62 12 90/48 98 Oxymask 10 10/06/17 15:41 36.9 70 16 106/69 (81) 100 Room Air 10/06/17 07:55 Room Air 10/06/17 07:07 37.0 62 16 105/70 (82) 97 Room Air Notes Mental Status: alert / awake / arousable, participated in evaluation Pt Amnestic to Procedure: Yes Nausea / Vomiting: adequately controlled Pain: adequately controlled Airway Patency, RR, SpO2: stable & adequate BP & HR: stable & adequate Hydration State: stable & adequate Anesthetic Complications: no major complications apparent
--- NOTE | 2017-10-06 17:46 | DIAGNOSTIC IMAGING REPORT ---
RETROGRADE INCLUDES KUB HISTORY: LT CYSTO/LASER/STENT FLUOROSCOPY TIME: 14 seconds. FINDINGS: 8 fluoroscopic spot images were submitted for review. Initial images demonstrate a ureteroscope within the bladder and cannulation of the left ureteral orifice. There is a 1 cm stone at the left ureterovesical junction. This was bypassed with a guidewire into the left ureter followed by placement of a left ureteral stent. The proximal portion of the stent appears to be in good position. The distal stent was not included on this study. There appears to be removal of the left UVJ stone. IMPRESSION: Fluoroscopy provided for removal of a left UVJ stone and placement of a left ureteral stent. Electronically signed by: Hiren Zabala M.D. 10/06/2017 5:45 PM Dictated Date/Time: 10/06/2017 5:43 PM
[2017-10-06 18:15] VITALS: BP 113/71; PULSE 62; TEMP 36.8; O2SAT 98
[2017-10-06 18:47] VITALS: BP 115/72; PULSE 67; TEMP 37; O2SAT 98
[2017-10-06] MEDS ORDERED: CEFTRIAXONE SOD INJ 1 GM in DEXTROSE 5% ADD-VANTAGE 50ML 50 ML IV SCH (19:00)
--- NOTE | 2017-10-06 19:07 | Discharge Instructions ---
Discharge Instructions Date of Service Oct 06, 2017. Admission Reason for Admission: Nephrolithiasis Discharge Discharge Diagnosis / Problem: Kidney stone, Renal mass Discharge Goals Goal(s): Decrease discomfort, Diagnostic testing, Therapeutic intervention Activity Recommendations Activity Limitations: as noted below Lifting Limitations: gradually increase as tolerated Exercise/Sports Limitations: gradually increase as tolerated May Resume Sexual Activity: when tolerated Shower/Bathe: no limitations Driving or Machine Use: no limitations . Instructions / Follow-Up Instructions / Follow-Up Mr. Sanders, Ej were admitted due to a kidney stone. You had a procedure to have your stone removed. You do have a stent in place. There is also a renal mass that will be addressed with your specialist in the coming weeks. Please follow up with your PCP and Urologist as scheduled. You may take ibuprofen or Tylenol for pain. If you have worsening pain, fevers, chills, vomiting, chest pain, shortness of breath or other concerns please call your PCP or come back to the ER> Thank you Current Hospital Diet Patient's current hospital diet: Regular Diet Discharge Diet Recommended Diet: Regular Diet Procedures Procedures Performed: Cystoscopy, Left Ureteroscopy, Stone Extraction, Laser Lithotripsy, Stent Insertion ([id number]) Pending Studies Studies pending at discharge: no Medical Emergencies . Who to Call and When: Medical Emergencies: If at any time you feel your situation is an emergency, please call 911 immediately. . Non-Emergent Contact Non-Emergency issues call your: Primary Care Provider, Urologist Call Non-Emergent contact if: you have a fever, your pain is not controlled, your pain is worsening . . "Provider Documentation" section prepared by Maxine Juan. .
[2017-10-06 19:17] VITALS: BP 125/74; PULSE 68; TEMP 36.8; O2SAT 96
[2017-10-06 20:26] VITALS: BP 125/74; PULSE 68; TEMP 36.8; O2SAT 96
[2017-10-06] MEDS ORDERED: TAMSULOSIN HCL 0.4 MG CAP PO SCH (21:00)
--- NOTE | 2017-10-07 06:21 | Discharge Summary ---
Discharge Summary Date of Service Oct 06, 2017. Discharge Summary Admission Date: Oct 05, 2017 at 21:58 Discharge Date: Oct 06, 2017 Discharge Disposition: Home Principal Diagnosis: Ureteral stone, renal mass- likely RCC Consultations: Urology Medication Reconciliation Medication Profile: No Active Prescriptions or Reported Meds Discharge Exam Patient appears well. He is relatively asymptomatic and declines anti-ametics and analgesia. He denies fevers/chills, headaches, CP, palpitations, dyspnea, lower extremity swelling, rashes or issues with voiding or and stooling ROS is unremarkable except as noted above. Physical Exam General Appearance: WD/WN, no apparent distress Eyes: normal inspection ENT: hearing grossly normal Neck: supple Respiratory/Chest: lungs clear, normal breath sounds, no respiratory distress, no accessory muscle use Cardiovascular: regular rate, rhythm, no murmur Abdomen: normal bowel sounds, non tender, soft, + pertinent finding (No CVA tenderness) Extremities: no pedal edema, no calf tenderness Neurologic/Psychiatric: alert, normal mood/affect, oriented x 3 Skin: normal color, warm/dry, no rash Hospital Course 47 year old male with no significant past medical history presented to the ED with complaints of acute onset left lower quadrant abdominal pain with radiation to his left lower back, with nausea and vomiting. Admitted for 10mm calculus of the left ureterovesicular junction with hydroureteronephrosis as well as left renal exophytic mass. Left ureteric stone with possible associated infection Abdominal CT pelvis reports moderate left-sided hydroureteronephrosis secondary to a 10mm calculus of the left ureterovesicular junction. Mild associated urothelial enhancement of the left renal collecting system and left ureter may be reactive or reflect associated infectious etiology. - UA shows trace leuks and blood, urine culture negative for acute infection. Empiric treatment with IV Rocephin discontinued - Urology consulted, performed cystoscopy, left ureteroscopy, stone extraction, laser lithotripsy, and stent Insertion - Follow up with urology on discharge scheduled for discussion of stent removal in future - Encouraged PO hydration with water, and Tylenol or ibuprofen PRN pain Left renal mass, suspicious of renal cell carcinoma: - Abdominal CT reports large heterogeneously enhancing partially exophytic mass of the superior and interpolar left kidney measures up to 6.2cm with areas of central low attenuation suggesting central necrosis, very suspicious for renal cell carcinoma. No evidence of pathologic adenopathy or metastatic disease. - Oncologist, Dr. Soria states no role for oncology yet with mass of this side, patient will need nephrectomy. Patient scheduled for outpatient oncology follow up. - Urology follow up on discharge scheduled to discuss nephrectomy DVT prophylaxis: - SCDs - No chemical anticoagulation in anticipation of procedure FULL CODE Total Time Spent: Greater than 30 minutes This includes examination of the patient, discharge planning, medication reconciliation, and communication with other providers. Discharge Instructions Please refer to the electronic Patient Visit Report (Discharge Instructions) for additional information. Additional Copies To Jakub Martin M.D. Resident Tracking Resident Involvement: Resident Care Provided Care Provided: [facility] Medicine Reviewed: Pt Seen/Exam by Me History back pain improved Constitutional: denies: fever Respiratory: negative: short of breath Cardiovascular: denies chest pain General Appearance: no apparent distress Respiratory: lungs clear, no respiratory distress Cardiovascular: regular rate, rhythm Neurologic/Psychiatric: alert, oriented x 3 Skin Characteristics: warm/dry Assessment/Plan Resident Physician Supervision Note: I independently interviewed and examined the patient and verified the ramirez history and physical, reviewed labs and image studies, discussed the case with the resident Dr. Mayfield and agree with the findings and care plan. Time spent in discharge 35 min
== END 2017-10-06 20:45 | disposition home or self-care (01) | DRG 669 ==
LOC: C.EDB 17:01 → C.MSN 21:58 → ENRESERV 22:21
PROVIDERS: ADMIT Family Medicine; ATTEND Family Medicine
PROC: 0T778DZ Dilation of Left Ureter with Intraluminal Device, Via Natural or Artificial Opening Endoscopic (ICD-10-PCS; principal; 2017-10-06 15:30)
PROC: 0TC78ZZ Extirpation of Matter from Left Ureter, Via Natural or Artificial Opening Endoscopic (ICD-10-PCS; principal; 2017-10-06 15:30)
DX: N13.2 Hydronephrosis with renal and ureteral calculous obstruction (principal); N39.0 Urinary tract infection, site not specified; N28.89 Other specified disorders of kidney and ureter; Z87.442 Personal history of urinary calculi; Z88.2 Allergy status to sulfonamides

== ENCOUNTER 2017-11-03 05:49 | Inpatient (IN) | payer BC ==
[2017-10-26 09:51] VITALS: BMI 25.0
[2017-11-03] VITALS (8 sets, daily range): BP systolic 90–140; BP diastolic 55–88; PULSE 46–73; TEMP 36.6–36.9; O2SAT 96–100; Ht 167.6 cm; Wt 71.2 kg
[~2017-11-03] VITALS: Ht 167.6 cm; Wt 71.2 kg
[2017-11-03] MEDS ORDERED: HEPARIN SOD 5000 UNIT/0.5 ML CARP SQ SCH (06:00)
[2017-11-03] MEDS ORDERED: CEFAZOLIN 2000MG IV PUSH 15 ML IV SCH (06:00)
[2017-11-03] MEDS: CLINDAMYCIN 600 MG/54 ML D5W IV SCH ×4 (06:00→10:51)
[2017-11-03] MEDS ORDERED: LACTATED RINGER'S 1000ML 1,000 ML IV SCH (06:00)
[2017-11-03] MEDS ORDERED: LIDOCAINE HCL 2% 2 ML VIAL (20MG/ML) ONE (06:27)
[2017-11-03] MEDS ORDERED: ONDANSETRON INJ 2 MG/ML 2 ML VIAL ONE (06:27)
[2017-11-03] MEDS ORDERED: MIDAZOLAM HCL 1 MG/ML 2ML VIAL ONE (06:27)
[2017-11-03] MEDS ORDERED: PROPOFOL IV EMULSION 10 MG/ML 20 ML VIAL IV ONE (06:27)
[2017-11-03] MEDS ORDERED: DEXAMETHASONE SOD INJ 4 MG/ML VIAL ONE (06:27)
[2017-11-03] MEDS ORDERED: FENTANYL CITRATE INJ 50 MCG/1 ML 2 ML VIAL ONE (06:27)
[2017-11-03] MEDS ORDERED: ROCURONIUM BROMIDE 10 MG/ML 5 ML VIAL IV ONE ×2 (06:27→08:11)
[2017-11-03] MEDS ORDERED: SODIUM CHLORIDE 0.9% INJ 10 ML VIAL ONE (06:33)
[2017-11-03] MEDS ORDERED: BUPIVACAINE 0.5 % 5 MG/1 ML MPF 30ML VIAL ONE (06:55)
--- NOTE | 2017-11-03 07:13 | History & Physical Bridge Note ---
H&P Re-Evaluation Bridge Note: I have examined the patient, reviewed the History & Physical and in the interval since the performance of the History & Physical I have noted the following changes of clinical significance: No changes noted
[2017-11-03] MEDS ORDERED: ACETAMINOPHEN 1000 MG/100 ML IV IV ONE (07:17)
[2017-11-03] MEDS ORDERED: EpHEDrine SULFATE INJ 50 MG/ML AMP IV PRN (07:30)
[2017-11-03] MEDS ORDERED: FENTANYL CITRATE INJ 50 MCG/1 ML 2 ML VIAL IV PRN (07:30)
[2017-11-03] MEDS ORDERED: MoRPHine SULFATE 10 MG/ML CARP/VIAL IV PRN (07:30)
[2017-11-03] MEDS ORDERED: ATROPINE SULFATE 0.1 MG/ML 5ML SYR IV PRN (07:30)
[2017-11-03] MEDS ORDERED: ONDANSETRON INJ 2 MG/ML 2 ML VIAL IV PRN ×2 (07:30→10:00)
[2017-11-03] MEDS ORDERED: HYDROmorphone INJ 2 MG/ML SYR/VIAL ONE (08:04)
[2017-11-03] MEDS ORDERED: GLYCOPYRROLATE INJ 0.2 MG/ML VIAL ONE (09:10)
[2017-11-03] MEDS ORDERED: NEOSTIGMINE METHYLSULFATE 5 MG/5 ML SYR ONE (09:10)
[2017-11-03] MEDS ORDERED: FLOSEAL HEMOSTATIC MATRIX 10ML TOP ONE (09:29)
--- NOTE | 2017-11-03 09:49 | [facility] Post Operative Brief Note ---
Immediate Operative Summary Operative Date Nov 03, 2017. Pre-Operative Diagnosis Left Renal Mass Post-Operative Diagnosis Same as preop Procedure(s) Performed Laparoscopic Hand Assisted Left Radical Nephrectomy Surgeon Dr. Cordoba Crop Quantitative Geneticist Surgeon(s) Corrie Stoner NP Estimated Blood Loss 25 ml Findings Consistent with Post-Op Diagnosis Specimens A. Left Kidney and Tumor Drains Dickerson Anesthesia Type General Complication(s) none Disposition Accompanied Pt To Recover: yes Disposition: Recovery Room / PACU (stable)
[2017-11-03] MEDS ORDERED: HYDROmorphone INJ 2 MG/ML SYR/VIAL IV PRN (10:00)
[2017-11-03] MEDS ORDERED: ACETAMINOPHEN/CODEINE 300/30MG TAB PO PRN (10:00)
[2017-11-03 10:25] LABS: HEMATOCRIT 36.9 % (42-52); HEMOGLOBIN 12.5 g/dL (14.0-18.0); MEAN CELL VOLUME 89.3 fL (80-100); MEAN CORPUSCULAR HEMOGLOBIN 30.3 pg (25-34); MEAN CORPUSCULAR HGB CONC 33.9 g/dl (32-36); MEAN PLATELET VOLUME 10.9 fL (7.4-10.4); PLATELET COUNT 231 K/uL (130-400); RED CELL DISTRIBUTION WIDTH CV 12.9 % (11.5-14.5); WHITE BLOOD COUNT 14.97 K/uL (4.8-10.8)
--- NOTE | 2017-11-03 10:30 | [facility] Operative Report ---
Operative Report Operative Date Nov 03, 2017. Pre-Operative Diagnosis Left Renal Mass Post-Operative Diagnosis Same as preop Procedure(s) Performed Laparoscopic Hand Assisted Left Radical Nephrectomy Surgeon Dr. Cordoba Director Federal Surgeon(s) Corrie Stoner NP Estimated Blood Loss 25 ml Specimens A. Left Kidney and Tumor Drains Nagy Anesthesia Type General Complication(s) none Disposition yes Recovery Room / PACU (stable) Description of Procedure The patient was identified in the pre-op area, consents reviewed, and he was brought to the operative suite. He received Clindamycin prior to induction of general anesthesia. A nagy catheter was inserted and he was placed in a right side down, lateral decubitus position and padded, braced, and prepped in sterile fashion. A posadas style incision was made in the left lower quadrant with careful dissection through the external oblique, internal oblique and then transversalis. The medial aspect of the incision extended to the lateral border of the rectus muscle. The peritoneum was opened sharply with metzenbaum scissors and a finger sweep revealed healthy feeling inner aspect of the peritoneum without adhesions. Utilzing the posadas style incision, I was able to mobilize the white line of toldt with a combination of sharp dissection and judicious electrocautery. After extending this incision up the lateral aspect of the kidney, I proceeded to place the Gel-Port retractor and insufflate the abdomen through a 12 port inserted in the gel port. Laparascopic evaluation revealed a clear abdominal wall without adhesions and confirmed good medial mobilization of the colon to the level of the mid kidney. I then placed two 12 mm lap ports just lateral to the rectus border, the superior port position 3-4 cm below the costal margin and the second port 8 cm below that. After inserting a hand through the gel port, I continued my mobilization of the colon utilizing the Harmonic scalpel. I continued medializing the colon until I felt the hilar structures would be adequately exposed. I then dissected the spleen cephalad by incision the spleno-renal ligment and some of the tissue inferior to the spleen. This allowed full visualization of the upper pole of the kidney with Gerota's fascia still intact. Turning my attention to the inferior aspect of the kidney, I was able to identify the gonadal vein medially. I dissected anterior to the vein in the direction of the renal vein. I also created a window just lateral to the gonadal and was able to utilize this window to pass a finger behind the kidney sweeping the psoas muscle clean and beginning to elevate the kidney. With the hilum on stretch, I was able to fully visualize the vein and simultaneously palpate the artery immediately posterior to it. The adrenal vein was visble and a window was created just lateral to the adrenal vein. A staple load was guided around the renal vein and artery and the two vessels taken en-bloc with excellent hemostasis. The lateral edge of the adrenal was visible, and with the harmonic scalpel, I was able to continue dissection along this plane, sparing the adrenal. A second staple load was fired adjacent to the medial/upper pole of the kidney to ensure excellent hemostasis as I continued this dissection. After completing my dissection of the upper pole, I continued my mobilization on the lateral aspect of the kidney entirely freeing it. I then skeletonized the cone of Gerota's inferior to the kidney, and controlled this utilizing harmonic scalpel. The ureter was identified and cut utilizing harmonic scalpel as well. This entirely freed the specimen which I then extracted through the hand port. I inspected the renal fossa for hemostasis, which was excellent. As an additional precaution a small amount of FloSeal coagulant was placed along the renal fossa and overlying the vasculature. I then concluded the laparoscopic portion of the case and began closure of the incisions after withdrawing the ports. The 2 child welfare assistant ports had their fascia closed with a 0 Vicryl [id number] fashion. I closed the hand port in several layers. I utilized a 0 Vicryl to close the peritoneum before reapproximating all 3 layers of the abdominal wall. Each of these was closed utilizing a running 0 Vicryl, beginning with the transversalis then moving onto the internal oblique and ultimately the external oblique. I infiltrated all layers with half percent Marcaine before closing the skin with a 4-0 Monocryl and Dermabond. Interrupted 4-0 Monocryl was utilized in a subcuticular fashion to close the 2 child welfare assistant/lap port sites as well. Dermabond was placed over these incisions. He was subsequently extubated and taken to the PACU in stable condition. There were no complications. Ms. Corrie Stoner assisted me throughout the case from the beginning incision, to her final closure. She additionally helped with the laparoscopic portion of the case by driving the camera I attest to the content of the Intraoperative Record and any orders documented therein. Any exceptions are noted below.
[2017-11-03 10:43] LABS: CALCIUM 8.6 mg/dl (8.5-10.1); CREATININE 1.15 mg/dl (0.60-1.40)
[2017-11-03] MEDS: LACTATED RINGER'S 1000ML 1,000 ML IV SCH ×3 (11:15→23:29)
--- NOTE | 2017-11-03 13:04 | Anesthesiology Progress Note ---
Anesthesia Post Op Note Date & Time Nov 03, 2017 at 13:04 Vital Signs Pain Intensity: 3 Vital Signs Past 12 Hours Date Time Temp Pulse Resp B/P (MAP) Pulse Ox O2 Delivery O2 Flow Rate FiO2 11/03/17 12:12 61 16 114/74 (87) 100 Nasal Cannula 2.0 11/03/17 11:45 59 16 114/73 (87) 100 Nasal Cannula 2.0 11/03/17 11:05 55 18 110/72 99 Nasal Cannula 2 11/03/17 10:55 54 18 108/69 99 Nasal Cannula 2 11/03/17 10:45 45 14 111/66 99 Nasal Cannula 2 11/03/17 10:35 36.7 63 12 117/68 100 Nasal Cannula 2 11/03/17 10:25 66 12 120/71 100 Nasal Cannula 2 11/03/17 10:15 70 18 108/75 100 Oxymask 10 11/03/17 10:05 72 15 117/70 100 Oxymask 10 11/03/17 09:56 36.8 83 19 131/74 100 Oxymask 10 11/03/17 06:14 36.6 58 18 140/88 99 Room Air Notes Mental Status: alert / awake / arousable, participated in evaluation Pt Amnestic to Procedure: Yes Nausea / Vomiting: adequately controlled Pain: adequately controlled Airway Patency, RR, SpO2: stable & adequate BP & HR: stable & adequate Hydration State: stable & adequate Anesthetic Complications: no major complications apparent
[2017-11-03 13:34] LABS: PTT PATIENT 25.9 SECONDS (21.0-31.0)
[2017-11-03] MEDS: ACETAMINOPHEN 500 MG TAB PO SCH ×2 (14:45→20:59)
[2017-11-03] MEDS: CLINDAMYCIN IV 600 MG in DEXTROSE 5% 50ML 50 ML IV SCH (16:41)
[2017-11-03] MEDS: HEPARIN SOD 5000 UNIT/0.5 ML CARP SQ SCH (18:42)
[2017-11-03] MEDS: DOCUSATE SODIUM 100 MG CAP PO SCH (20:59)
[2017-11-04] MEDS: CLINDAMYCIN IV 600 MG in DEXTROSE 5% 50ML 50 ML IV SCH ×2 (00:55→07:43)
[2017-11-04] MEDS: ACETAMINOPHEN 500 MG TAB PO SCH ×3 (02:22→13:37)
[2017-11-04 03:48] VITALS: BP 106/66; PULSE 60; TEMP 36.7; O2SAT 97
[2017-11-04] MEDS: HEPARIN SOD 5000 UNIT/0.5 ML CARP SQ SCH (06:14)
[2017-11-04] MEDS: LACTATED RINGER'S 1000ML 1,000 ML IV SCH (06:17)
[2017-11-04] MEDS: DOCUSATE SODIUM 100 MG CAP PO SCH (07:43)
[2017-11-04 07:59] VITALS: BP 112/71; PULSE 49; TEMP 36.6; O2SAT 97
[2017-11-04 08:34] LABS: BASO % 0.2 %; BASO ABS # 0.02 K/uL (0-0.2); EOS ABS # 0.12 K/uL (0-0.5); HEMATOCRIT 34.6 % (42-52); HEMOGLOBIN 11.5 g/dL (14.0-18.0); IG# 0.02 K/uL (0.00-0.02); LYMPH % 18.7 %; LYMPH ABS # 2.27 K/uL (1.2-3.4); MEAN CELL VOLUME 90.6 fL (80-100); MEAN CORPUSCULAR HEMOGLOBIN 30.1 pg (25-34); MEAN CORPUSCULAR HGB CONC 33.2 g/dl (32-36); MEAN PLATELET VOLUME 11.7 fL (7.4-10.4); MONO % 11.5 %; NEUT % 68.4 %; NEUT ABS # 8.32 K/uL (1.4-6.5); PLATELET COUNT 209 K/uL (130-400); WHITE BLOOD COUNT 12.15 K/uL (4.8-10.8)
[2017-11-04 09:06] LABS: CALCIUM 8.5 mg/dl (8.5-10.1); CREATININE 1.4 mg/dl (0.60-1.40); POTASSIUM 4.1 mmol/L (3.5-5.1)
--- NOTE | 2017-11-04 09:38 | Progress Note ---
Subjective Date of Service: Nov 04, 2017. (Corrie Stoner CRNP) Subjective Pt evaluation today including: conversation w/ patient, chart review, lab review Voiding: nagy catheter in place (patent, draining clear, yellow urine ) 47 yo male s/p left HALN. Pt reports he feels well this morning. Has not yet been OOB. Denies n/v. Tolerating regular diet this morning. Labs stable. I&Os acceptable. (Corrie Stoner CRNP) Problem List Medical Problems: (1) Left renal mass Status: Acute (2) Left ureteral stone Status: Acute (3) UTI (urinary tract infection) Status: Acute (Corrie Stoner CRNP) Review of Systems Constitutional: No fever, No chills Respiratory: No shortness of breath Cardiac: No chest pain Abdomen: No pain, No nausea, No vomiting Male : No hematuria Heme: No abnormal bleeding/bruising (Corrie Stoner CRNP) Objective Vital Signs Date Time Temp Pulse Resp B/P (MAP) Pulse Ox O2 Delivery O2 Flow Rate FiO2 11/04/17 07:59 36.6 49 16 112/71 (85) 97 Room Air 11/04/17 03:48 36.7 60 16 106/66 (79) 97 Room Air 11/03/17 22:55 36.8 60 16 111/64 (80) 96 Room Air 11/03/17 19:47 36.7 46 16 106/67 (80) 98 Room Air 11/03/17 19:20 Room Air 11/03/17 14:13 36.9 46 16 90/55 (67) 98 Room Air 11/03/17 13:13 73 16 123/80 (94) 99 Nasal Cannula 2.0 11/03/17 12:12 61 16 114/74 (87) 100 Nasal Cannula 2.0 11/03/17 11:45 59 16 114/73 (87) 100 Nasal Cannula 2.0 11/03/17 11:15 98 Nasal Cannula 2.0 11/03/17 11:15 Nasal Cannula 2.0 11/03/17 11:15 36.7 62 18 111/67 (82) 98 Nasal Cannula 2.0 11/03/17 11:05 55 18 110/72 99 Nasal Cannula 2 11/03/17 10:55 54 18 108/69 99 Nasal Cannula 2 11/03/17 10:45 45 14 111/66 99 Nasal Cannula 2 11/03/17 10:35 36.7 63 12 117/68 100 Nasal Cannula 2 11/03/17 10:25 66 12 120/71 100 Nasal Cannula 2 11/03/17 10:15 70 18 108/75 100 Oxymask 10 11/03/17 10:05 72 15 117/70 100 Oxymask 10 11/03/17 09:56 36.8 83 19 131/74 100 Oxymask 10 (Corrie Stoner, UTILIZATION MANAGEMENT UM NURSE) Physical Exam General Appearance: no apparent distress Eyes: normal inspection ENT: hearing grossly normal Neck: no JVD Respiratory/Chest: no respiratory distress, no accessory muscle use Cardiovascular: no JVD Abdomen: + pertinent finding (abdominal incisions c/d/i) Extremities: normal inspection Neurologic/Psychiatric: alert, normal mood/affect, oriented x 3 Skin: normal color (Corrie Stoner, UTILIZATION MANAGEMENT UM NURSE) Laboratory Results Last 24 Hours Test 11/03/17 10:15 11/03/17 13:14 11/04/17 08:07 White Blood Count 14.97 K/uL 12.15 K/uL Red Blood Count 4.13 M/uL 3.82 M/uL Hemoglobin 12.5 g/dL 11.5 g/dL Hematocrit 36.9 % 34.6 % Mean Corpuscular Volume 89.3 fL 90.6 fL Mean Corpuscular Hemoglobin 30.3 pg 30.1 pg Mean Corpuscular Hemoglobin Concent 33.9 g/dl 33.2 g/dl RDW Standard Deviation 42.0 fL 43.0 fL RDW Coefficient of Variation 12.9 % 13.0 % Platelet Count 231 K/uL 209 K/uL Mean Platelet Volume 10.9 fL 11.7 fL Sodium Level 138 mmol/L 136 mmol/L Potassium Level 4.0 mmol/L 4.1 mmol/L Chloride Level 105 mmol/L 103 mmol/L Carbon Dioxide Level 28 mmol/L 27 mmol/L Anion Gap 6.0 mmol/L 7.0 mmol/L Blood Urea Nitrogen 11 mg/dl 11 mg/dl Creatinine 1.15 mg/dl 1.40 mg/dl Est Creatinine Clear Calc Drug Dose 72.4 ml/min 59.5 ml/min Estimated GFR () 88.0 69.3 Estimated GFR (Non- 75.9 59.8 BUN/Creatinine Ratio 9.5 8.1 Random Glucose 140 mg/dl 107 mg/dl Calcium Level 8.6 mg/dl 8.5 mg/dl Prothrombin Time 10.3 SECONDS Prothromb Time International Ratio 1.0 Activated Partial Thromboplast Time 25.9 SECONDS Partial Thromboplastin Ratio 1.0 Neutrophils (%) (Auto) 68.4 % Lymphocytes (%) (Auto) 18.7 % Monocytes (%) (Auto) 11.5 % Eosinophils (%) (Auto) 1.0 % Basophils (%) (Auto) 0.2 % Neutrophils # (Auto) 8.32 K/uL Lymphocytes # (Auto) 2.27 K/uL Monocytes # (Auto) 1.40 K/uL Eosinophils # (Auto) 0.12 K/uL Basophils # (Auto) 0.02 K/uL Immature Granulocyte % (Auto) 0.2 % Immature Granulocyte # (Auto) 0.02 K/uL (Corrie Stoner CRNP) Assessment and Plan POD #1 s/p left HALN AFVSS. Pt doing well post-op clinically. Will d/c nagy catheter this morning. Encourage use of IS. Encourage ambulation to hallway. Possible d/c home later this afternoon if tolerating PO, pain controlled, and ambulating without difficulty. Discharge planning: home (Corrie tSoner CRNP) Addendum Patient seen and examined this morning Incisions appropriate Pain as expected Encouraged him to ambulate today If he progresses well after Nagy removal and hep locking IV, possible discharge home this afternoon Labs as expected for day 1 after nephrectomy (Steve Cordoba M.D.)
[2017-11-04] MEDS ORDERED: DOCU-94 PO (10:02)
[2017-11-04] MEDS ORDERED: ACET-749 PO (10:02)
--- NOTE | 2017-11-04 10:03 | Discharge Instructions ---
Discharge Instructions Date of Service Nov 04, 2017. Admission Reason for Admission: Renal Mass Discharge Discharge Diagnosis / Problem: Left renal mass Discharge Goals Goal(s): Decrease discomfort, Improve disease control, Improve nutritional status, Therapeutic intervention Activity Recommendations Activity Limitations: per Instructions/Follow-up section Shower/Bathe: tomorrow 1. Do not lift >20lbs x 6 weeks. 2. No heavy exercise x 6 weeks. You may engage in light activity such as walking and stairs as tolerated. 3. Do not drive x [address] while taking narcotics. 4. Follow-up as scheduled. Please call our office at [phone] if you need to reschedule for any reason. . . Current Hospital Diet Patient's current hospital diet: Regular Diet Discharge Diet Recommended Diet: Regular Diet Procedures Procedures Performed: Laparoscopic Hand Assisted Left Radical Nephrectomy Pending Studies Studies pending at discharge: yes List of pending studies: left kidney Medical Emergencies . Who to Call and When: Medical Emergencies: If at any time you feel your situation is an emergency, please call 911 immediately. . Non-Emergent Contact Non-Emergency issues call your: Urologist Call Non-Emergent contact if: temperature is above 101.5, your pain is not controlled, your pain is worsening, your pain is unusual for you, your pain is concerning you, wound has increased drainage, wound has increased redness, wound has increased pain, you have any medication questions . . "Provider Documentation" section prepared by Corrie Stoner. . [place] Drug Monitoring Program Drug Monitoring Findings: Unable to review pt in the PDMP d/t system error.
--- NOTE | 2017-11-04 11:04 | Anesthesiology Progress Note ---
Anesthesia Post Op Note Date & Time Nov 04, 2017 at 11:04 Vital Signs Vital Signs Past 12 Hours Date Time Temp Pulse Resp B/P (MAP) Pulse Ox O2 Delivery O2 Flow Rate FiO2 11/04/17 10:33 Room Air 11/04/17 07:59 36.6 49 16 112/71 (85) 97 Room Air 11/04/17 03:48 36.7 60 16 106/66 (79) 97 Room Air Notes Mental Status: alert / awake / arousable, participated in evaluation Pt Amnestic to Procedure: Yes Nausea / Vomiting: adequately controlled Pain: adequately controlled Airway Patency, RR, SpO2: stable & adequate BP & HR: stable & adequate Hydration State: stable & adequate Anesthetic Complications: no major complications apparent
[2017-11-04 12:22] VITALS: BP 120/66; PULSE 51; TEMP 36.7; O2SAT 98
[2017-11-04 15:21] VITALS: BP 120/66; PULSE 51; TEMP 36.7; O2SAT 98
--- NOTE | 2017-11-06 07:18 | Discharge Summary ---
Discharge Summary Date of Service Nov 06, 2017. Admission Date/Reason Nov 03, 2017 at 09:53 Renal Mass. Discharge Date/Disposition Nov 04, 2017 Home Diagnosis Principal Diagnosis: renal cell carcinoma Procedure(s) Performed left hand assisted laparoscopic radical nephrectomy Medication Reconciliation New Medications: Acetaminophen/Codeine (Tylenol W/Codeine #3) 300 Mg/30 Mg Tab 1-2 TAB PO Q4 PRN for Pain, #20 TAB Docusate Sodium (Colace) 100 Mg Cap 1 CAP PO BID PRN for Constipation for 30 Days, #60 CAP Admission Physical Exam As per Admitting History & Physical. Hospital Course Admitted for SYLWIA rad nx. Details of the procedure as dictated previously in the operative report. He progressed extremely well overnight. Passed a voiding trial on the morning of post operative day #1 - labs appropriate. Tolerating a diet, ambulating - ultimately discharged home in stable condition. Discharge Instructions Please refer to the electronic Patient Visit Report (Discharge Instructions) for additional information.
== END 2017-11-04 16:15 | disposition home or self-care (01) | DRG 658 ==
LOC: C.ACU 05:49 → C.MSW 09:53 → ENRESERV 10:46
PROVIDERS: ADMIT Urology; ATTEND Urology
PROC: 0TT10ZZ Resection of Left Kidney, Open Approach (ICD-10-PCS; principal; 2017-11-03 07:30)
DX: C64.2 Malignant neoplasm of left kidney, except renal pelvis (principal); N28.89 Other specified disorders of kidney and ureter; E78.5 Hyperlipidemia, unspecified; N20.0 Calculus of kidney; Z83.3 Family history of diabetes mellitus; Z82.49 Family history of ischemic heart disease and other diseases of the circulatory system; Z83.49 Family history of other endocrine, nutritional and metabolic diseases; Z88.1 Allergy status to other antibiotic agents

== ENCOUNTER 2018-10-13 06:19 | Inpatient (IN) ==
--- NOTE | 2018-10-04 10:33 | Anesthesiology Consultation ---
Date of Service October 04, 2018 Assessment & Plan (1) Encounter for pre-operative examination: - Check CBC AM DOS (no preop labs done) Chart Review Chart Review: Acceptable Risk for Surgery and Patient NOT seen in Pre Admission Testing History Surgery Operation Date: 10/13/18 07:30 Proposed Procedures p Navigational Bronchoscopy with ICG Marking, - Justo Boone MD, FACS s Robotic Left Video Assisted Thoracoscopy with Lower Lobe Wedge Resection, Possible Left Lower Lobectomy and Mediastinal Lymphadenectomy - Justo Boone MD, FACS Height/Weight Height: 5 ft 7 in Weight: 70.307 kg Allergies Allergy/AdvReac Type Severity Reaction Status Date / Time amoxicillin Allergy Mild RASH Verified 09/28/18 12:39 chocolate flavor Allergy Unknown HIVES Verified 09/28/18 12:39 safflower oil Allergy Unknown RASH Unverified 09/28/18 12:39 adhesive AdvReac Mild Rash Verified 09/28/18 12:40 SPIRIT GUM Allergy Unknown RASH Uncoded 09/28/18 12:39 Medications Home Medications Medication Instructions Recorded Confirmed Last Taken No Known Home Medications 09/28/18 09/28/18 Unknown Past Medical History Medical History Kidney stones Lung nodules Renal cell carcinoma Past Family History Family History Mother FHx: breast cancer Past Surgical History Surgical History History of cystoscopy History of lithotripsy History of nephrectomy LEFT= 11/03/17= Grade view 1, MAC 3, ETT 7.5 at [facility] History of tooth extraction Social History Smoking Status: Never smoker Do You Dip or Chew Tobacco: No Hx Alcohol Use: Yes Alcohol type: hard liquor alcohol intake frequency: a few times a week Hx Substance Use: No substance use type: does not use Testing Electrocardiogram Date: 10/06/17 Findings: + NSR @ (67) Other Testing Chest CT= 09/14/18= Stable 9 mm left lower lobe groundglass pulmonary nodule. As previous stated, a low-grade pulmonary neoplasm cannot be excluded. [address] follow-up is recommended. No evidence of pathologic adenopathy
[~2018-10-13 06:19] MED LIST: LR 15ML/HR IV SCH
--- NOTE | 2018-10-13 06:45 | History & Physical Bridge Note ---
Date of Service October 13, 2018 History & Physical Bridge Note I have examined the patient, reviewed the History & Physical and in the interval since the performance of the History & Physical I have noted the following changes of clinical significance: no changes noted
[2018-10-13 06:56] LABS: Hematocrit (blood only) 39.4 % (42-52); Hemoglobin 13.5 g/dL (14.0-18.0); Mean Corpuscular Volume 90.6 fL (80-100); Mean Platelet Volume 11.4 fL (7.4-10.4); Platelet Count 222 K/uL (130-400); RDW Coefficient of Variation 12.3 % (11.5-14.5); RDW Standard Deviation 40.8 fL (36.4-46.3); Red Blood Count 4.35 M/uL (4.7-6.1); White Blood Count 7.09 K/uL (4.8-10.8)
[2018-10-13] MEDS ORDERED: SODIUM CHLORIDE 0.9% PF 50 ML VIAL ONE (06:58)
[2018-10-13] MEDS ORDERED: BUPIVACAINE 0.5 % 5 MG/1 ML MPF 30ML VIAL ONE (06:59)
[2018-10-13] MEDS ORDERED: BUPIVACAINE LIPOSOME 1.3% 266 MG/20 ML VIAL ONE (06:59)
[2018-10-13 07:05] LABS: Mean Corpuscular Hgb Conc 34.3 g/dL (32-36)
[2018-10-13] MEDS ORDERED: PROPOFOL IV EMULSION 10 MG/ML 20 ML VIAL IV ONE ×2 (07:07→09:53)
[2018-10-13] MEDS ORDERED: LIDOCAINE HCL 2% 2 ML VIAL/AMP(20MG/ML) INFIL ONE (07:07)
[2018-10-13] MEDS ORDERED: MIDAZOLAM HCL 1 MG/ML 2ML VIAL ONE (07:07)
[2018-10-13] MEDS ORDERED: SUCCINYLCHOLINE CHLORIDE 20 MG/ML 10 ML VIAL ONE (07:07)
[2018-10-13] MEDS ORDERED: PHENYLEPHRINE HCL 10 MG/ML VIAL ONE (07:07)
[2018-10-13] MEDS ORDERED: GLYCOPYRROLATE 0.2 MG/ML VIAL ONE (07:07)
[2018-10-13] MEDS ORDERED: ONDANSETRON INJ 2 MG/ML 2 ML VIAL ONE (07:07)
[2018-10-13] MEDS ORDERED: DEXAMETHASONE SOD INJ 4 MG/ML VIAL ONE (07:07)
[2018-10-13] MEDS ORDERED: fentaNYL citrate 100 MCG/2 ML VIAL ONE (07:07)
[2018-10-13] MEDS ORDERED: NEOSTIGMINE METHYLSULFATE 5 MG/5 ML SYR ONE (07:07)
[2018-10-13] MEDS ORDERED: ePHEDrine sulfate 50 MG/ML AMP ONE (07:07)
[2018-10-13] MEDS ORDERED: ePHEDrine sulfate 50 MG/ML AMP IV PRN (07:17)
[2018-10-13] MEDS ORDERED: HYDROmorphone INJ 2 MG/ML SYR/VIAL IV PRN (07:17)
[2018-10-13] MEDS ORDERED: ATROPINE SULFATE 0.1 MG/ML 10ML SYR IV PRN (07:17)
[2018-10-13] MEDS ORDERED: PROMETHAZINE HCL 6.25 MG in SODIUM CHLORIDE 0.9% 50 ML IV PRN (07:17)
[2018-10-13] MEDS ORDERED: ONDANSETRON INJ 2 MG/ML 2 ML VIAL IV PRN ×2 (07:17→11:46)
[2018-10-13] MEDS ORDERED: CLINDAMYCIN 600 MG/54 ML D5W IV ONE (07:26)
[2018-10-13] MEDS ORDERED: ePHEDrine sulfate 50 MG/ML SYR ONE (09:28)
[2018-10-13] MEDS ORDERED: ROCURONIUM BROMIDE 10 MG/ML 5 ML VIAL ONE (09:53)
--- NOTE | 2018-10-13 10:03 | Post Operative Brief Note ---
Immediate Post Op Note v1 Date of Surgery October 13, 2018 Pre & Post Diagnosis Operation Date: 10/13/18 07:30 Pre-Op Diagnosis: Left lower lobe lung nodules Post-Op Diagnosis: Left lower lobe lung nodules Procedure Operation Date: 10/13/18 07:30 Actual Procedures p Navigational Bronchoscopy with ICG Marking, - Justo Boone MD, FACS s Robotic Left Video Assisted Thoracoscopy with Lower Lobe Wedge Resection and Mediastinal Lymph node biopsy - Justo Boone MD, FACS Surgeon Justo Boone MD, FACS Surgeon Chief Jessica SCOTT Estimated Blood Loss 10 Findings Consistent with Post-Op Diagnosis Drains Chest Tube (24fr placed intraoperatively) and Nagy Catheter (16fr nagy catheter placed without difficulty, nagy demonstrates clear yellow urine. Output measured and recorded by anesthesia.)
[2018-10-13] MEDS ORDERED: METOCLOPRAMIDE HCL INJ 5 MG/ML 2 ML VIAL IV ONE (10:25)
--- NOTE | 2018-10-13 10:34 | Fluoroscopy Report ---
FL chest 1V frontal CLINICAL HISTORY: NAVIGATIONAL BRONCH W/ ICG MARKING COMPARISON STUDY: Chest CT September 14, 2018. FLUOROSCOPY TIME: 19.9 seconds. FLUOROSCOPIC IMAGES: 1 FINDINGS: Single AP fluoroscopic image demonstrates bronchoscopy within the left lower lobe. IMPRESSION: Fluoroscopic image obtained during bronchoscopy. Electronically signed by: John Leon M.D. 10/13/2018 10:32 AM
--- NOTE | 2018-10-13 10:47 | XRay Report ---
XR chest 1V portable CLINICAL HISTORY: left lung wedge COMPARISON STUDY: Chest CT September 14, 2018. FINDINGS: A left chest tube is in place. Small left apical pneumothorax with superior pleural separat ion of 1 cm noted. There is mild left lower lung opacity. Right lung is clear. There is no evidence f or pulmonary edema. IMPRESSION: Left chest tube in place. Small apical pneumothorax. Electronically signed by: John Leon M.D. 10/13/2018 10:46 AM
--- NOTE | 2018-10-13 10:50 | Anesthesiology Progress Note ---
Date of Service October 13, 2018 Anesthesia Post Procedure Vital Signs Vital Signs: Temp Pulse Pulse Resp BP Pulse Ox 10/13/18 10:28 36.2 C L 90 20 103/58 L 100 10/13/18 06:41 36.8 C 62 20 137/85 100 Pain Intensity Left Chest: Pain Intensity: 0 Notes Mental Status: alert / awake / arousable Patient Amnestic to Procedure: Yes Nausea / Vomiting: adequately controlled Pain: adequately controlled Airway Patency, RR, SpO2: stable & adequate BP & HR: stable & adequate Hydration State: stable & adequate Anesthetic Complications: no major complications apparent
[2018-10-13] MEDS: fentaNYL citrate 100 MCG/2 ML VIAL IV PRN ×2 (10:52→11:00)
[2018-10-13] MEDS ORDERED: MoRPHine SULFATE 2 MG/ML CARP IV PRN (11:46)
[2018-10-13] MEDS ORDERED: OXYCODONE HCL IR 5 MG TAB (IMMEDIATE RELEASE) PO PRN (11:46)
[2018-10-13] MEDS: D5W AND 1/2NSS 1,000 ML IV SCH ×2 (12:09→22:35)
[2018-10-13] MEDS: ACETAMINOPHEN 1,000 MG/100 ML VIAL IV SCH ×2 (12:09→19:12)
[2018-10-13 12:46] LABS: INR 1.1 (0.9-1.1); Prothrombin Time 10.9 Seconds (9.0-12.0)
[2018-10-13 13:11] LABS: Creatinine Clr Calc Pharmacy 67.8 ml/min; Est GFR (African American) 78.2; Est GFR (Non-African American) 67.5
--- NOTE | 2018-10-13 13:36 | Operative Report ---
DATE OF OPERATION: 10/13/2018 PREOPERATIVE DIAGNOSES: 1. Left lower lobe nodule. 2. History of nephrectomy for renal cell carcinoma. POSTOPERATIVE DIAGNOSES: 1. Left lower lobe nodule. 2. History of nephrectomy for renal cell carcinoma. PROCEDURE: 1. Electromagnetic navigational bronchoscopy with marking of left lower lobe nodule with indocyanine green dye. 2. Robot-assisted left thoracoscopy with wedge resection of the left lower lobe nodule. SURGEON: Justo Boone MD. BLACK STUDIES PROFESSOR: LIZET Benitez (. Faye was present for the entire case and was at the patient's bedside while I was at the console). ANESTHESIA: General anesthesia, endotracheal intubation using double lumen tube. INDICATIONS FOR PROCEDURE AND FINDINGS: Mr. Sanders is a healthy 48-year-old male who was found to have a left renal cell carcinoma and underwent a left nephrectomy and upon scanning postoperatively for surveillance, he was found to have a nodule in his left lower lobe. This was a subcentimeter nodule, although it was a bit indistinct; however, it was persistent. I met the patient twice in the office. We had a long discussion with him and his . We stated we could observe this or we could wedge this out with marking. On 10/13/2018, the patient underwent an uncomplicated electromagnetic navigational bronchoscopy and I marked this with indocyanine green dye. We then turned the patient and did a robot-assisted left thoracoscopy, and using the fluorescence, I was able to see that the dye was marking a particular part of the lower lobe as expected. I did a very generous wedge resection x2 and this came out nicely. We had no bleeding and no air leaking. On frozen section, Dr. Jakub Delacruz thoroughly evaluated this and did not see an obvious nodule. We will have to wait for the permanent sections. I also took out a level 8 and level 9 lymph node. He tolerated it well without an air leak at the conclusion and with negligible blood loss. He is extubated in the room. PROCEDURE DESCRIPTION: The patient was brought to the operating room and laid in supine position. General anesthesia induced and endotracheal intubation was performed. He was prepped and draped and an 8.5 endotracheal tube was placed. After appropriate timeout had been called, I then placed the fiberoptic bronchoscope. He really had very little in the way of sputum. We then registered his airways. We did this with the navigational probe. I went down into the left lower lobe and even though the nodule was fairly peripheral and was small, there was an airway that went right out to it. I then pointed the tip of the catheter towards the pleura about a centimeter and a half away. We placed the needle and injected 1 mL of indocyanine green dye mixed with 1 mL of air. We then removed the catheter. There was no bleeding. We then switched the patient over to a double lumen tube. He was then turned into the right lateral decubitus position. The left chest was prepped and draped in usual sterile fashion. Camera port was placed just about the 9th rib without difficulty. Carbon dioxide was insufflated and we then went to put an 8 mm port anteriorly and posteriorly along the same interspace and placed a 15 mm port just above the diaphragm for assistance port. Upon docking the robot and putting the camera in place, it could be seen with the fluorescence that this area lit up posteriorly as expected. We then did a generous wedge resection using Endo-BG staplers. We sent off actually 2 segments. One portion was a bit angled after we performed the wedge resection, so we took that out with another Endo-BG stapler. The 2 sections were delivered off the field in an Endobag. They were checked under frozen section, we saw no evidence of cancer. While waiting for the frozen section, 266 mg of Exparel had been mixed with 30 mL of 0.25% Marcaine and 250 of normal saline used not only to inject each of the ports before reopened, but also to inject each of the interspaces for an intercostal block from the 2nd-11th rib. We then took down the inferior pulmonary ligament. We biopsied level 9 node and level 8 node. We really got into no bleeding. There were no lung injuries. A 24-Chinese chest tube was placed through the upper anterior incision directed towards the apex, sutured in place with heavy silk suture. The 0 Vicryl was used to close the muscle layers of the larger incisions and 4-0 Monocryl was used in running subcuticular fashion to approximate the wound edges. Antimicrobial dressings were placed. He is extubated in the room and transported to postanesthesia care unit in stable condition. I attest to the content of the Intraoperative Record and any orders documented therein. Any exception s are noted below.
--- NOTE | 2018-10-13 14:56 | Anesthesiology Progress Note ---
Date of Service October 13, 2018 Anesthesia Post Procedure Vital Signs Vital Signs: Temp Pulse Pulse Pulse Resp BP BP 10/13/18 14:26 36.9 C 68 16 97/58 L 10/13/18 13:24 36.4 C L 79 16 108/64 10/13/18 12:35 36.5 C 69 16 107/62 10/13/18 11:58 36.5 C 64 14 112/69 10/13/18 11:30 36.6 C 63 14 104/66 10/13/18 11:20 36.4 C L 10/13/18 11:16 51 L 14 105/61 10/13/18 11:15 51 L 20 10/13/18 11:11 49 L 18 104/64 10/13/18 11:10 49 L 16 10/13/18 11:07 49 L 14 10/13/18 11:06 67 16 109/64 10/13/18 11:05 58 L 16 10/13/18 11:00 65 16 112/69 10/13/18 10:56 70 17 116/44 L 10/13/18 10:55 67 12 10/13/18 10:51 66 3 L 106/71 10/13/18 10:50 69 9 L 10/13/18 10:46 71 15 118/62 10/13/18 10:45 70 13 10/13/18 10:41 70 15 121/55 L 10/13/18 10:40 70 15 10/13/18 10:36 91 H 17 111/73 10/13/18 10:35 85 17 10/13/18 10:31 89 17 103/58 L 10/13/18 10:30 89 22 10/13/18 10:29 86 25 H 106/56 L 10/13/18 10:28 36.2 C L 90 20 103/58 L 10/13/18 06:41 36.8 C 62 20 137/85 Pulse Ox 10/13/18 14:26 98 10/13/18 13:24 100 10/13/18 12:35 100 10/13/18 11:58 100 10/13/18 11:30 99 10/13/18 11:20 100 10/13/18 11:16 100 10/13/18 11:15 100 10/13/18 11:11 100 10/13/18 11:10 100 10/13/18 11:07 100 10/13/18 11:06 100 10/13/18 11:05 100 10/13/18 11:00 100 10/13/18 10:56 100 10/13/18 10:55 100 10/13/18 10:51 100 10/13/18 10:50 100 10/13/18 10:46 100 10/13/18 10:45 100 10/13/18 10:41 100 10/13/18 10:40 100 10/13/18 10:36 100 10/13/18 10:35 98 10/13/18 10:31 98 10/13/18 10:30 99 10/13/18 10:29 100 10/13/18 10:28 100 10/13/18 06:41 100 Pain Intensity Left Chest: Pain Intensity: 4 Notes Mental Status: alert / awake / arousable Patient Amnestic to Procedure: Yes Nausea / Vomiting: adequately controlled Pain: adequately controlled Airway Patency, RR, SpO2: stable & adequate BP & HR: stable & adequate Hydration State: stable & adequate Anesthetic Complications: no major complications apparent and Pt Satisfied with anesthetic care
[2018-10-13] MEDS: METOCLOPRAMIDE HCL INJ 5 MG/ML 2 ML VIAL IV SCH (19:11)
[2018-10-13] MEDS: DOCUSATE SODIUM 100 MG CAP PO SCH (21:36)
[2018-10-14] MEDS: ACETAMINOPHEN 1,000 MG/100 ML VIAL IV SCH (03:00)
[2018-10-14] MEDS: METOCLOPRAMIDE HCL INJ 5 MG/ML 2 ML VIAL IV SCH (03:00)
[2018-10-14 06:39] LABS: Hematocrit (blood only) 33.7 % (42-52); Hemoglobin 11.3 g/dL (14.0-18.0); Mean Corpuscular Hgb Conc 33.5 g/dL (32-36); Mean Corpuscular Volume 91.6 fL (80-100); Mean Platelet Volume 11.4 fL (7.4-10.4); Platelet Count 175 K/uL (130-400); RDW Coefficient of Variation 12.6 % (11.5-14.5); RDW Standard Deviation 42.8 fL (36.4-46.3); Red Blood Count 3.68 M/uL (4.7-6.1); White Blood Count 11.69 K/uL (4.8-10.8)
[2018-10-14 07:04] LABS: Creatinine Clr Calc Pharmacy 62.3 ml/min; Est GFR (African American) 70.7
--- NOTE | 2018-10-14 07:24 | XRay Report ---
XR chest 1V portable HISTORY: 48 years-old Male left lung wedge follow-up study in a patient with prior left wedge resect ion COMPARISON: Chest radiograph 10/13/2017, chest CT 09/14/2018 TECHNIQUE: Portable AP view of the chest FINDINGS: Can't mediastinal and hilar silhouettes are unchanged. Stable positioning of the left-sided chest tub e. Decreased size of the tiny left apical pneumothorax, pleural separation or proximally 6 mm. Subcut aneous emphysema about the left chest wall and supraclavicular distribution redemonstrated. Minimal s ubsegmental bibasilar atelectasis. Bones appear unremarkable. IMPRESSION: Stable positioning of left-sided chest tube. Tiny left apical pneumothorax. The above report was generated using voice recognition software. It may contain grammatical, syntax o r spelling errors. Electronically signed by: Tanner Grady M.D. 10/14/2018 7:23 AM
[2018-10-14 07:47] VITALS: TEMP 98.4
--- NOTE | 2018-10-14 07:55 | Anesthesiology Progress Note ---
Date of Service October 14, 2018 Anesthesia Post Procedure Vital Signs Vital Signs: Temp Pulse Pulse Pulse Pulse Resp BP 10/14/18 07:43 36.9 C 59 L 12 10/14/18 07:30 10/14/18 03:30 37.2 C 63 16 10/13/18 23:30 37.0 C 55 L 16 10/13/18 21:26 37.5 C 69 24 10/13/18 19:47 37 C 69 20 10/13/18 17:44 10/13/18 17:30 37 C 66 22 10/13/18 15:35 36.9 C 90 18 10/13/18 14:26 36.9 C 68 16 10/13/18 13:24 36.4 C L 79 16 10/13/18 12:35 36.5 C 69 16 10/13/18 11:58 36.5 C 64 14 10/13/18 11:30 36.6 C 63 14 10/13/18 11:20 36.4 C L 10/13/18 11:16 51 L 14 105/61 10/13/18 11:15 51 L 20 10/13/18 11:11 49 L 18 104/64 10/13/18 11:10 49 L 16 10/13/18 11:07 49 L 14 10/13/18 11:06 67 16 109/64 10/13/18 11:05 58 L 16 10/13/18 11:00 65 16 112/69 10/13/18 10:56 70 17 116/44 L 10/13/18 10:55 67 12 10/13/18 10:51 66 3 L 106/71 10/13/18 10:50 69 9 L 10/13/18 10:46 71 15 118/62 10/13/18 10:45 70 13 10/13/18 10:41 70 15 121/55 L 10/13/18 10:40 70 15 10/13/18 10:36 91 H 17 111/73 10/13/18 10:35 85 17 10/13/18 10:31 89 17 103/58 L 10/13/18 10:30 89 22 10/13/18 10:29 86 25 H 106/56 L 10/13/18 10:28 36.2 C L 90 20 BP BP Pulse Ox Pulse Ox 10/14/18 07:43 109/72 95 03/21/19 07:30 94 10/14/18 03:30 119/67 96 10/13/18 23:30 115/72 96 10/13/18 21:26 97/51 L 97 10/13/18 19:47 103/56 L 96 10/13/18 17:44 98 10/13/18 17:30 114/63 98 10/13/18 15:35 108/62 97 10/13/18 14:26 97/58 L 98 10/13/18 13:24 108/64 100 10/13/18 12:35 107/62 100 10/13/18 11:58 112/69 100 10/13/18 11:30 104/66 99 10/13/18 11:20 100 10/13/18 11:16 100 10/13/18 11:15 100 10/13/18 11:11 100 10/13/18 11:10 100 10/13/18 11:07 100 10/13/18 11:06 100 10/13/18 11:05 100 10/13/18 11:00 100 10/13/18 10:56 100 10/13/18 10:55 100 10/13/18 10:51 100 10/13/18 10:50 100 10/13/18 10:46 100 10/13/18 10:45 100 10/13/18 10:41 100 10/13/18 10:40 100 10/13/18 10:36 100 10/13/18 10:35 98 10/13/18 10:31 98 10/13/18 10:30 99 10/13/18 10:29 100 10/13/18 10:28 103/58 L 100 Pain Intensity Left Chest: Pain Intensity: 4 Notes Mental Status: alert / awake / arousable and participated in evaluation Patient Amnestic to Procedure: Yes Nausea / Vomiting: adequately controlled Pain: adequately controlled Airway Patency, RR, SpO2: stable & adequate BP & HR: stable & adequate Hydration State: stable & adequate Anesthetic Complications: Pt Satisfied with anesthetic care
[2018-10-14 08:00] VITALS: BP 119/67; PULSE 68; O2SAT 95
[2018-10-14] MEDS ORDERED: ACETAMINOPHEN 325 MG TAB PO SCH (08:00)
[2018-10-14] MEDS: DOCUSATE SODIUM 100 MG CAP PO SCH (08:25)
[2018-10-14] MEDS ORDERED: ENOXAPARIN INJ 40 MG/0.4 ML SYR SQ SCH (09:00)
--- NOTE | 2018-10-15 05:18 | Discharge Summary ---
DISCHARGE DIAGNOSES: 1. Nodules, left lower lobe. 2. Status post left nephrectomy for renal cell carcinoma. HOSPITAL COURSE: Ike is a 48-year-old healthy male who was found to have a left kidney mass and underwent a left nephrectomy for renal cell carcinoma last year. He underwent a CT scan and followup and a small abnormality was noted in the left lower lobe. CT scan was repeated and it persisted. It is very small and we had a long discussion about possibilities and stated quite frankly that he was young, healthy and had never smoked, I felt that his risk for having a primary lung cancer was rather low; however, it is possible we were dealing with metastases. After a long discussion in the office on a couple of different occasions with the patient and his family, we elected to proceed with a navigational bronchoscopy with marking using ICG dye and then a robot-assisted thoracoscopic wedge resection. I found that there is a possibility we would do a lobectomy, but I doubt that would be the case. On 10/13/2018, the patient underwent an uncomplicated navigational bronchoscopy and we did benjamin this area with ICG dye and then upon placing the robotic scope and using fluorescence, we could see this area. I did a generous wedge resection x2 of this area. Frozen section did not show a discrete mass. I discussed this in detail with the pathologist on 3 separate occasions in the operating room. I felt I am confident that we had removed this nodule despite the fact we could not feel it. We will have to wait for permanent sections. The patient did quite well with negligible blood loss. He was extubated in the room. He was watched on the floor and he was ambulating in the hallways a few hours after surgery. He was tolerating a regular diet. He voided without difficulty. We pulled this chest tube. His x-ray looked quite good afterwards. He was discharged home on postoperative day 1 and I will see him back in the office to go over his final pathology. We went over wound care and we did give him tramadol for pain. I instructed the patient and his to call me should any problems arise.
--- NOTE | 2018-10-19 07:13 | Coding Query ---
PATHOLOGY To promote full compliance with coding requirements relating to patient care, physician participation is requested in all cases of health information coder uncertainty. Please assist us with the question(s) below: Dr. Boone, Please review the Pathology report and please document any relevant diagnosis(es) below: Diagnosis(es): Primary lung cancer Thank you for your time, CHINO Lopez, [facility]
== END 2018-10-14 09:25 | disposition home or self-care (01) | DRG 165 ==
LOC: ASU 06:19 → 3N 10:14

== ENCOUNTER 2018-10-28 10:44 | Inpatient (IN) ==
--- NOTE | 2018-10-25 10:56 | Anesthesiology Consultation ---
Date of Service October 25, 2018 Assessment & Plan (1) Encounter for pre-operative examination: Chart Review Chart Review: Acceptable Risk for Surgery and Patient NOT seen in Pre Admission Testing Consults Requested none History Surgery Operation Date: 10/28/18 12:00 Proposed Procedures p Robotic Left Video Assisted Thoracoscopy with Left Lower Lobectomy and Mediastinal Lymphadenectomy - Justo Boone MD, FACS Allergies Allergy/AdvReac Type Severity Reaction Status Date / Time amoxicillin Allergy Mild RASH Verified 10/13/18 06:59 chocolate flavor Allergy Unknown HIVES Verified 10/13/18 06:59 safflower oil Allergy Unknown RASH Verified 10/13/18 06:59 adhesive AdvReac Mild Rash Verified 10/13/18 06:59 SPIRIT GUM Allergy Unknown RASH Uncoded 10/13/18 06:40 Medications Home Medications Medication Instructions Recorded Confirmed Last Taken tramadol [Ultram] 50 mg PO QID PRN #18 tab 10/14/18 Unknown Past Medical History Medical History Kidney stones Lung nodules Renal cell carcinoma Past Family History Family History Mother FHx: breast cancer Past Surgical History Surgical History History of cystoscopy History of lithotripsy History of nephrectomy LEFT= 11/03/17= Grade view 1, MAC 3, ETT 7.5 at [facility] History of tooth extraction Social History Smoking Status: Never smoker Hx Alcohol Use: Yes Alcohol type: hard liquor alcohol intake frequency: a few times a week Hx Substance Use: No substance use type: does not use
[~2018-10-28 10:44] MED LIST changes: +DEXAMETHASONE SOD INJ 4 MG/ML VIAL ONE; +MIDAZOLAM HCL 1 MG/ML 2ML VIAL ONE; +ONDANSETRON INJ 2 MG/ML 2 ML VIAL ONE; +PROPOFOL IV EMULSION 10 MG/ML 20 ML VIAL IV ONE; +ROCURONIUM BROMIDE 10 MG/ML 5 ML VIAL ONE; +fentaNYL citrate 100 MCG/2 ML VIAL ONE
--- NOTE | 2018-10-28 11:50 | History & Physical Bridge Note ---
Date of Service October 28, 2018 History & Physical Bridge Note I have examined the patient, reviewed the History & Physical and in the interval since the performance of the History & Physical I have noted the following changes of clinical significance: no changes noted
[2018-10-28] MEDS ORDERED: ATROPINE SULFATE 0.1 MG/ML 10ML SYR IV PRN (12:05)
[2018-10-28] MEDS ORDERED: ePHEDrine sulfate 50 MG/ML AMP IV PRN (12:05)
[2018-10-28] MEDS ORDERED: BUPIVACAINE 0.5 % 5 MG/1 ML MPF 30ML VIAL ONE (12:15)
[2018-10-28] MEDS ORDERED: BUPIVACAINE LIPOSOME 1.3% 266 MG/20 ML VIAL ONE (12:16)
[2018-10-28] MEDS ORDERED: SODIUM CHLORIDE 0.9% PF 50 ML VIAL ONE (12:16)
[2018-10-28] MEDS ORDERED: CLINDAMYCIN PHOS 300 MG/2 ML VIAL ONE (13:16)
[2018-10-28] MEDS ORDERED: fentaNYL citrate 100 MCG/2 ML VIAL ONE ×2 (13:30→13:33)
[2018-10-28] MEDS ORDERED: CLINDAMYCIN 900 MG in DEXTROSE 5% 100 ML IV SCH (14:15)
--- NOTE | 2018-10-28 15:38 | Post Operative Brief Note ---
Immediate Post Op Note v1 Date of Surgery October 28, 2018 Pre & Post Diagnosis Operation Date: 10/28/18 12:45 Pre-Op Diagnosis: Lung Cancer, Left Lower Lobe Post-Op Diagnosis: Lung Cancer, Left Lower Lobe Procedure Operation Date: 10/28/18 12:45 Actual Procedures p Robotic Left Video Assisted Thoracoscopy with Left Lower Lobectomy and Mediastinal Lymphadenectomy(Left) - Justo Boone MD, FACS Surgeon Justo Boone MD, FACS Client Services Account Manager Jessica HINDS Estimated Blood Loss 50 Findings Consistent with Post-Op Diagnosis Drains Chest Tube (24 Fr. Thal) and Dickerson Catheter (Removed at end of case per Dr. Boone. )
[2018-10-28] MEDS ORDERED: METOCLOPRAMIDE HCL INJ 5 MG/ML 2 ML VIAL IV ONE (15:55)
[2018-10-28] MEDS ORDERED: NEOSTIGMINE METHYLSULFATE 5 MG/5 ML SYR ONE (16:09)
[2018-10-28] MEDS ORDERED: GLYCOPYRROLATE 0.2 MG/ML VIAL ONE (16:09)
--- NOTE | 2018-10-28 16:09 | XRay Report ---
XR chest 1V portable HISTORY: 48 years-old Male LLL postoperative exam with left-sided chest tube COMPARISON: Chest radiographs 10/21/2018 TECHNIQUE: Portable AP view of the chest FINDINGS: Left-sided chest tube is noted with distal tip terminating near the left lung apex. Postoperative bar nges of the left lung with small left pleural effusion. There is a tiny left-sided pneumothorax with pleural separation measuring approximately 4 mm laterally. Mild subsegmental bibasilar densities. Hea rt is mildly enlarged. Degenerative changes of the shoulders and spine. No overt pulmonary edema. IMPRESSION: 1. Postoperative changes of the left lung with left-sided chest tube terminating adjacent to left tanisha g apex. Tiny left-sided pneumothorax is noted. 2. Small left pleural effusion is suggested. 3. Bibasilar opacities suggest probable atelectasis. The above report was generated using voice recognition software. It may contain grammatical, syntax o r spelling errors. Electronically signed by: Tanner Grady M.D. 10/28/2018 4:08 PM
[2018-10-28] MEDS: HYDROmorphone INJ 1 MG/ML SYRINGE IV PRN ×3 (16:19→16:30)
--- NOTE | 2018-10-28 16:28 | Anesthesiology Progress Note ---
Date of Service October 28, 2018 Anesthesia Post Procedure Vital Signs Vital Signs: Temp Pulse Pulse Resp BP Pulse Ox 10/28/18 15:59 36.8 C 74 18 123/75 100 10/28/18 11:42 37.2 C 79 20 129/80 98 Pain Intensity Left Chest: Pain Intensity: 6 Notes Mental Status: alert / awake / arousable and participated in evaluation Patient Amnestic to Procedure: Yes Nausea / Vomiting: adequately controlled Pain: adequately controlled Airway Patency, RR, SpO2: stable & adequate BP & HR: stable & adequate Hydration State: stable & adequate Anesthetic Complications: no major complications apparent and Pt Satisfied with anesthetic care
[2018-10-28] MEDS ORDERED: ONDANSETRON INJ 2 MG/ML 2 ML VIAL IV PRN (17:45)
[2018-10-28] MEDS: D5W AND 1/2NSS 1,000 ML IV SCH (18:45)
[2018-10-28] MEDS: ACETAMINOPHEN 1,000 MG/100 ML VIAL IV SCH (18:54)
--- NOTE | 2018-10-28 21:07 | Operative Report ---
DATE OF OPERATION: 10/28/2018 PREOPERATIVE DIAGNOSES: 1. Adenocarcinoma, left lower lobe. 2. Status post wedge resection, left lower lobe. 3. Status post laparoscopic hand-assisted left nephrectomy last year. PROCEDURE: 1. Reoperative robot-assisted thoracoscopic left lower lobectomy. 2. Mediastinal lymphadenectomy. SURGEON: Justo Boone MD TAPE LIBRARIAN: LIZET Benitez (Mr. Faye was present for the entire case and was at the patient's bedside while I was at the console). ANESTHESIA: General anesthesia with endotracheal intubation using double lumen tube. SPECIFICS OF PROCEDURE AND FINDINGS: Ike Sanders is a 48-year-old male who is very healthy, has never smoked cigarettes and is in very good shape, who was found to have a mass in his left kidney and underwent a laparoscopic hand-assisted left nephrectomy by Dr. Cordoba last year. On subsequent followup scans, he was found to have 2 tiny masses in his left lower lobe that persisted. I looked at these and felt that given his lack of other risk factors, we were probably dealing with metastases. Unfortunately, they were very small, so I marked them with indocyanine green and performed a robot-assisted thoracoscopic wedge resection. Really could not feel anything, really did not see anything to freeze for frozen section, so we closed. I was quite surprised when I was called by pathology and told me that this was an adenocarcinoma of lung origin. Could not be seen on frozen section because it was not a nodule per se, but they did find this. In addition, it was at the staple line. I had a long discussion with the patient and his and stated that I felt that going back and completing the lobectomy was paramount if we are trying to obtain a cure. They understood and agreed. On 10/28/2018, the patient was brought to the operating room and underwent an uncomplicated robot-assisted thoracoscopic left lower lobectomy with a mediastinal lymphadenectomy. He tolerated it well, was extubated in the room, had negligible blood loss, and had no air leak. DESCRIPTION OF PROCEDURE: The patient was brought to operating room and laid in the supine position. General anesthesia was induced, endotracheal intubation was performed with double lumen tube. The patient was placed in right lateral decubitus position and his left chest prepped and draped in usual sterile fashion. After appropriate timeout had been called and antibiotics given, we used an Exparel solution, which we created by mixing 266 mg of Exparel and 30 mL of 0.5% Marcaine and 250 mL of normal saline. We injected each of the port sites before placing them. Also did an intercostal nerve block from the 2nd to the 11th rib under direct vision. The camera port was anesthetized first and we opened this original incision and I was able to go in with a blunt-tipped trocar and we could see we were in the pleural cavity and really there were no adhesions to the chest wall. Carbon dioxide was insufflated after we switched this to a camera port. I then went back and opened up our anterior and posterior 8-mm port sites. We placed a new 5-mm port closer to the spine about 4 cm away from the spinous process in about the eighth interspace. We also a put a 15-mm assistance port where it had been before anteriorly above the diaphragm. Upon going in, I was surprised at the amount of reactive tissue along the inferior pulmonary ligament. This was a bit difficult to dissect. I brought it all the way up until I came to the vein and then cleaned off the inferior pulmonary vein quite easily and fired a stapler across this and then dissected. Then coming posteriorly, I dissected out the arterial branches as well as the bronchus. He had an incomplete fissure. I started working on this and worked down until I got to the artery and then was able to separate the fissure with a stapler posteriorly. He had some extremely difficult lymph nodes to dissect out. We managed to get quite a few out. I then followed the artery more distally and came upon the lingual branch. I then cleaned off these lymph nodes quite meticulously and then fired an Endo-BG stapler across the superior segmental branch and then along the left lower lobe arterial branch just below the takeoff of the lingual branch. After this was done, we then used an Endo-BG to complete the fissure anteriorly. This was done without difficulty. All we had left was the bronchus and w fired a stapler below the takeoff of the bronchus to the lingula. The specimen was then allowed to sit down near the diaphragm and I came up and dissected out a level 10 node anteriorly as well as a level 5, a level 6. We got a level 7 by going posterior to the bronchus. We also dissected a level 8 out. We dissected out multiple 11s and 10s. These were all delivered off the field. We then irrigated the chest with warm saline and inflated the lung and did not see any evidence of an air leak. The lung inflated nicely. A large Endo-BG bag was then used to remove the specimen through the assistance port. We had to open this up to about 5 cm. After delivering this off the field, we then used 0 Vicryl to close the muscle layers of the assistance port and the camera port where the original camera had been. The rest were 8-mm and 5-mm ports, which we did not close and we did not close the muscle. A chest tube was directed towards the anterior port towards the apex and sutured in place with heavy silk suture. This was done under thoracoscopic control. It should also be noted that with the Exparel, we injected the 2nd to the 11th rib under direct vision with the thoracoscope. We then closed all the incisions with 4-0 Monocryl in running continuous fashion and sutured the chest tube in with heavy silk suture. The patient tolerated it quite well and was extubated in the room with negligible blood loss and had good pain control. He was transported back to the postanesthesia care unit in stable condition. I attest to the content of the Intraoperative Record and any orders documented therein. Any exception s are noted below.
[2018-10-28] MEDS: DOCUSATE SODIUM 100 MG CAP PO SCH (21:17)
[2018-10-28] MEDS: MoRPHine SULFATE 2 MG/ML CARP IV PRN (22:43)
[2018-10-29] MEDS: METOCLOPRAMIDE HCL INJ 5 MG/ML 2 ML VIAL IV SCH ×3 (00:19→16:07)
[2018-10-29] MEDS: ACETAMINOPHEN 1,000 MG/100 ML VIAL IV SCH ×3 (01:24→18:46)
[2018-10-29] MEDS: MoRPHine SULFATE 2 MG/ML CARP IV PRN ×4 (01:35→12:20)
[2018-10-29] MEDS: D5W AND 1/2NSS 1,000 ML IV SCH (03:53)
[2018-10-29 06:15] LABS: Basophils # (auto) 0.04 K/uL (0-0.2); Basophils % (auto) 0.3 %; Eosinophils # (auto) 0.03 K/uL (0-0.5); Eosinophils % (auto) 0.2 %; Hematocrit (blood only) 32.8 % (42-52); Immature Granulocytes # (auto) 0.03 K/uL (0.00-0.02); Immature Granulocytes % (auto) 0.2 %; Lymphocytes # (auto) 1.43 K/uL (1.2-3.4); Lymphocytes % (auto) 11.1 %; Mean Corpuscular Volume 91.1 fL (80-100); Mean Platelet Volume 10.6 fL (7.4-10.4); Monocytes # (auto) 1.19 K/uL (0.11-0.59); Monocytes % (auto) 9.2 %; Neutrophils # (auto) 10.17 K/uL (1.4-6.5); Platelet Count 248 K/uL (130-400); RDW Coefficient of Variation 12.5 % (11.5-14.5); RDW Standard Deviation 41.8 fL (36.4-46.3); White Blood Count 12.89 K/uL (4.8-10.8)
[2018-10-29 06:16] LABS: Mean Corpuscular Hgb Conc 33.5 g/dL (32-36)
[2018-10-29 06:32] LABS: BUN Creatinine Ratio 13.5 (10-20); Calcium 8.2 mg/dl (8.5-10.1); Creatinine Clr Calc Pharmacy 64.7 ml/min; Est GFR (African American) 73.9; Est GFR (Non-African American) 63.8; Potassium 4.6 mmol/L (3.5-5.1)
--- NOTE | 2018-10-29 07:48 | XRay Report ---
XR chest 1V portable CLINICAL HISTORY: Lobectomy. COMPARISON STUDY: Chest radiograph October 28, 2018. FINDINGS: Left basilar chest tube is in place. Chest tube has been repositioned. There are postoperat ta findings within the left hemithorax with volume loss. A small left apical pneumothorax with pleur al separation of 4 mm is similar to prior exam. Right lung is clear. Cardiomediastinal silhouette is stable. No evidence for pulmonary edema. IMPRESSION: Left basilar chest tube in place. Small left pneumothorax. Electronically signed by: John Leon M.D. 10/29/2018 7:47 AM
[2018-10-29] MEDS: OXYCODONE HCL IR 5 MG TAB (IMMEDIATE RELEASE) PO PRN ×2 (09:00→09:49)
[2018-10-29] MEDS: DOCUSATE SODIUM 100 MG CAP PO SCH ×2 (09:01→21:36)
[2018-10-29] MEDS: ASCORBIC ACID 500 MG TAB PO SCH ×2 (09:01→09:51)
[2018-10-29] MEDS: ENOXAPARIN INJ 40 MG/0.4 ML SYR SQ SCH (09:04)
[2018-10-29] MEDS: KETOROLAC TROMETHAMINE 15 MG/ML VIAL IV SCH ×2 (14:20→21:36)
--- NOTE | 2018-10-29 23:09 | Progress Note ---
DATE: 10/29/2018 Ike was seen today. One day ago, I performed a completion robot-assisted thoracoscopic left lower lobectomy with a mediastinal lymphadenectomy. He has done quite well. He was having a great deal of pain this morning, which was episodic and really did not have much pain overnight; however, this afternoon, I came back to see him but he was on room air and had been ambulating multiple times. He is eating well as stated he had very little in the way of pain. He is draining just a little too much for me to pull this tube today. I drained at least 100 mL today by my observation. He has no air leak. I think his chest x-ray looks quite good and I do not think we are dealing with a pneumothorax. I may remove his chest tube in the morning and let him go home. I am quite pleased with Ike Sanders.
[2018-10-30] MEDS: OXYCODONE HCL IR 5 MG TAB (IMMEDIATE RELEASE) PO PRN ×2 (00:01→08:07)
[2018-10-30] MEDS: ACETAMINOPHEN 1,000 MG/100 ML VIAL IV SCH ×2 (01:56→09:58)
[2018-10-30] MEDS: KETOROLAC TROMETHAMINE 15 MG/ML VIAL IV SCH (05:46)
--- NOTE | 2018-10-30 07:29 | XRay Report ---
XR chest 1V portable HISTORY: 48 years-old Male LLL postoperative changes of the left lung. COMPARISON: Chest radiograph 10/29/2018 TECHNIQUE: Portable AP view of the chest FINDINGS: Cardiac silhouette is mildly enlarged, unchanged. Stable positioning of the left-sided chest tube. De creased size of the tiny left apical pneumothorax, pleural separation of approximately 2 mm. Postoper ative findings of the left lung with volume loss redemonstrated. Right lung appears clear. Sigmoidal thoracolumbar scoliosis. IMPRESSION: Stable positioning of the left-sided chest tube. Decreased size of the tiny left pneumoth orax. The above report was generated using voice recognition software. It may contain grammatical, syntax o r spelling errors. Electronically signed by: Tanner Grady M.D. 10/30/2018 7:28 AM
[2018-10-30] MEDS: ENOXAPARIN INJ 40 MG/0.4 ML SYR SQ SCH (07:57)
[2018-10-30] MEDS: ASCORBIC ACID 500 MG TAB PO SCH (07:58)
[2018-10-30] MEDS: DOCUSATE SODIUM 100 MG CAP PO SCH (07:58)
--- NOTE | 2018-10-30 09:05 | XRay Report ---
XR chest 1V portable HISTORY: 48 years-old Male s/p chest tube removal status post removal of left-sided chest tube COMPARISON: Chest radiograph of same day at 7:18 AM TECHNIQUE: Portable AP view of the chest FINDINGS: Status post removal of the left-sided chest tube. Tiny left apical pneumothorax redemonstrated, pleur al separation of approximately 3 mm. Postoperative changes of the left perihilar lung. Minimal subcut aneous emphysema about the lower left chest wall. Mild volume loss of the left lung with left hemidia phragmatic elevation. Right lung is clear. No pleural effusion or overt pulmonary edema. Bones of the chest appear grossly intact. IMPRESSION: 1. Interval removal of the left-sided chest tube. 2. Tiny left apical pneumothorax redemonstrated. The above report was generated using voice recognition software. It may contain grammatical, syntax o r spelling errors. Electronically signed by: Tanner Grady M.D. 10/30/2018 9:03 AM
--- NOTE | 2018-10-30 21:59 | Discharge Summary ---
DISCHARGE DIAGNOSIS: Adenocarcinoma, left lower lobe. HOSPITAL COURSE: Mr. Sanders is a 48-year-old male who was found to have a left renal cell carcinoma last year and underwent a hand-assisted left nephrectomy by Dr. Pete Cordoba. Followup CT scans for surveillance showed a small left lower lobe mass which was persistent. I attempted a navigational bronchoscopy. We did not get a diagnosis, but I was concerned and saw the patient and his a couple of times in the office. Finally set him up for wedge resection which was done on 10/13/2018. This was a very small nodule and was unable to be seen on frozen section; however, permanent sections showed this patient to have an adenocarcinoma of the lung, which was quite surprising in this 48-year-old healthy nonsmoker. At this point, I had a long talk with him and felt that we should proceed with a reoperation to complete the lobectomy. On 10/28/2018, the patient was brought to the operating room and underwent an uncomplicated robot-assisted thoracoscopic left lower lobectomy with mediastinal lymphadenectomy. Margins were negative. He did very well, extubated in the room. He was watched on the floor for 2 days and I removed his chest tube on postop day 2. His incisions were all clean. We removed his chest tube. His x-ray looked quite good. He was ambulating in the hallway on room air and was on a house diet. All in all, I was quite pleased with him. His pathology was not back at time of his discharge. I will see him back in the office next week. Discharge instructions were given. He really is having very little pain and is taking nonsteroidals, but I did give him prescription for oxycodone if he so chooses. Otherwise, I will see him back in the office next week. I have encouraged him to call should any problems arise.
== END 2018-10-30 12:23 | disposition home or self-care (01) | DRG 165 ==
LOC: ASU 10:44 → 3W 15:46